=== PATIENT | female | born 1935 | race Caucasian/White ===

== ENCOUNTER 2016-05-17 21:09 | Inpatient (IN) | payer OTHER, BC ==
--- NOTE | 2016-05-17 21:29 | PDOC ---
History of Present Illness - General History Source: Patient Exam Limitations: No Limitations - History of Present Illness Initial Comments: 05/17/16 21:54 Patient is a 80 year old female with significant past medical history of Afib ( on Coumadin) who presents to the ED with SOB. Patient notes that she has had a cough and chills since last Friday and saw her PCP yesterday and was prescribed cough medication with codeine. Patient notes that over the course of today she became more short of breath, worsening over the few hours. Patient reports productive cough and chest congestion. She denies any chest pain. PAST MEDICAL HISTORY: Afib on Coumadin PAST SURGICAL HISTORY: no significant history FAMILY HISTORY: no pertinent history SOCIAL HISTORY: Pt lives with family. MEDICATIONS: reviewed ALLERGIES: As per nursing notes General: +chills. No fevers, no weakness, no weight loss HEENT: No change in vision. No sore throat, No ear pain CardioVascular: No chest pain. Respiratory: +cough, +SOB, +chest heaviness. No wheezing. Gastrointestinal: no nausea, vomiting, diarrhea or constipation, No rectal bleeding Genitourinary: No dysuria, hematuria, or frequency Musculoskeletal: No joint or muscle pain or swelling Neurologic: No headache, vertigo, dizziness or loss of consciousness Psychiatric: nor depression Skin: No rashes or easy bruising Endocrine: no increased thirst or abnormal weight change Allergic: no skin or latex allergy All other systems reviewed and normal General: Well-nourished well-developed individual, no acute distress HEENT: Throat: Normal, tonsils normal, no erythema or exudate Neck: Supple, no meningeal signs, no lymphadenopathy Eyes: Pupils equal reactive and round, extraocular motion intact Chest: Nontender to palpation Cardiac: +Irregularly irregular rate and rhythm, S1-S2 normal, no murmurs rubs or gallops Respiratory: +Breath sounds decreased on the right with few inspiratory and expiratory wheezes and rhonchi. Abdomen: Soft, nondistended, normal bowel sounds, nontender to palpation diffusely Extremities: Warm, dry, no cyanosis, clubbing, or edema Skin: No rashes Neuro: Alert and oriented x3, nonfocal exam, grossly intact, normal gait Psych: Normal mood and affect <Elda Gaspar - Last Filed: 05/17/16 21:54> - General History Source: Patient Exam Limitations: No Limitations - History of Present Illness Initial Comments: 05/17/16 22:34 A portion of this note was documented by scribe services under my direction. I have reviewed the details of the note, within reason, and agree with the documentation. The case summary and management plan written by me. EKG normal atrial fibrillation at a rate is [address] depressions laterally questionable ischemia otherwise no acute ST-T wave changes Chest x-ray no acute disease Assessment and plan: This is an 80-year-old female who comes in complaining of cough congestion fevers chills progressive times approximately one week. On arrival in the emergency room patient's O2 sat was 96% and she was to. Patient also noted to have a productive cough. Patient also complained of some chest tightness in her cardiogram shows some possible lateral ischemia Patient's initial she will set of cardiac enzymes is normal Patient given Rocephin 4 presumptive pneumonia as her clinical exam was consistent with pneumonia with rhonchi at the right base. Patient will be admitted to an inpatient telemetry bed for presumptive pneumonia and chest pain. Discussed admission with Dr. Rueda. <Alexis Min I - Last Filed: 05/17/16 23:09> - General Chief Complaint: Shortness of Breath Stated Complaint: SHORT OF BREATH Time Seen by Provider: 05/17/16 21:14 Past History <Elda Gaspar - Last Filed: 05/17/16 21:54> - Past Medical History Anemia: No Asthma: No Cancer: Yes (Bladder, CERVIX) Cardiac Disorders: Yes (HX OF ATRIAL FIBRILLATION) CVA: No COPD: No CHF: No Dementia: No Diabetes: No GI Disorders: Yes (COLON ADENOMA, DIVERTICULOSIS, HEMORRHOIDS) Disorders: Yes (BLADDER CA) HTN: Yes Hypercholesterolemia: Yes Liver Disease: No Seizures: No Thyroid Disease: No - Surgical History Abdominal Surgery: No Appendectomy: No Cardiac Surgery: Yes (CARDIOVERTED PAROXYSMAL ATRIAL FIBRILLATION) Cholecystectomy: No Lung Surgery: No Neurologic Surgery: No Orthopedic Surgery: Yes (SUSI. HIP REPLACEMENTS) - Psycho/Social/Smoking Cessation Hx Smoking History: Former smoker Have you smoked in the past 12 months: No If you are a former smoker, when did you quit?: 25 YRS AGO Hx Alcohol Use: Yes (SOCIAL) Drug/Substance Use Hx: No Substance Use Type: None Hx Substance Use Treatment: No <Alexis Min I - Last Filed: 05/17/16 23:09> - Past Medical History Allergies/Adverse Reactions: Allergies Allergy/AdvReac Type Severity Reaction Status Date / Time quinine Allergy Swelling Verified 05/17/16 21:28 apixaban [From Eliquis] AdvReac Bleeding Verified 05/17/16 21:28 dabigatran etexilate mesylate AdvReac Bleeding Verified 05/17/16 21:28 [From Pradaxa] Home Medications: Ambulatory Orders Pyridoxine HCl (B-6) [Vitamin B6 -] 100 mg PO DAILY 06/11/13 Quinapril HCl [Accupril -] 40 mg PO DAILY 06/11/13 Atenolol 50 mg PO DAILY tablet 01/27/15 Cyanocobalamin (Vitamin B-12) [Vitamin B-12] 1,000 mcg PO DAILY tablet Folic Acid 0.4 mg PO DAILY tablet 01/04/16 Guaifenesin AC [Robitussin AC] 10 ml PO Q8H PRN 05/17/16 Warfarin Sodium [Coumadin] 4 mg PO MO 05/17/16 Warfarin Sodium [Coumadin] 6 mg PO SUTUWETHFRSA 05/17/16 *Physical Exam - Vital Signs Last Vital Signs Temp Pulse Resp BP Pulse Ox 98.2 F 100 H 26 H 155/109 92 L 05/17/16 21:10 05/17/16 21:10 05/17/16 21:10 05/17/16 21:10 05/17/16 21:10 <Elda Gaspar - Last Filed: 05/17/16 21:54> ED Treatment Course - LABORATORY CBC & Chemistry Diagram: 05/17/16 21:35 05/17/16 21:35 <Elda Gaspar - Last Filed: 05/17/16 21:54> - LABORATORY CBC & Chemistry Diagram: 05/17/16 21:35 05/17/16 21:35 <Alexis Min I - Last Filed: 05/17/16 23:09> *DC/Admit/Observation/Transfer - Attestations Scribe Attestion: 05/17/16 21:54 Documentation prepared by HAMZAH Deng, acting as medical staff services manager for Alexis iMn MD/DO. <Elda Gaspar - Last Filed: 05/17/16 21:54> - Discharge Dispostion Admit: Yes <Alexis Mni I - Last Filed: 05/17/16 23:09> Diagnosis at time of Disposition: Pneumonia, Chest pain - Discharge Dispostion Condition at time of disposition: Good - Referrals Referrals: Roland Davidson MD [Primary Care Provider] -
[2016-05-17 22:03] LABS: EOSINOPHIL 1.4 % (0-4.5); MCHC 33.6 g/dl (32.0-36.0); MEAN CELL VOLUME 89.1 fl (80-96); MEAN PLT VOLUME 8.5 fl (7.5-11.1); NEUTROPHILS 60.9 % (42.8-82.8); PLATELET COUNT 154 K/MM3 (134-434); RDW 13.3 % (11.6-15.6)
[2016-05-17 22:11] LABS: ALBUMIN 4.2 g/dl (3.5-5.0); ALK PHOS 81 U/L (32-92); ANION GAP 9 (8-16); BILIRUBIN,TOTAL 1.1 mg/dl (0.2-1.0); CALCIUM 9.4 mg/dl (8.4-10.2); CO2 24 mmol/L (22-28); CPK(DFH) 112 IU/L (26-140); CREATININE 0.8 mg/dl (0.6-1.3); GLUCOSE,RANDOM 124 mg/dl (74-106); SGOT/AST 36 U/L (10-42); SGPT/ALT 33 U/L (10-40); TOT PROT 7.3 g/dl (6.4-8.3)
[2016-05-17 22:20] LABS: PH,URINE 5.5 (4.5-8); URINE APPEARANCE Clear; URINE BILIRUBIN Negative (NEGATIVE); URINE GLUCOSE (UA) Negative (NEGATIVE); URINE KETONE Negative (NEGATIVE); URINE NITRITE Negative (NEGATIVE); URINE UROBILINOGEN 0.2 E.U/dl (0.2-1.0)
[2016-05-17 22:21] LABS: TROPONIN I (DFP) < 0.03 ng/ml (0.03-0.50)
[2016-05-17 22:25] LABS: URINE BLOOD 2+ (NEGATIVE); URINE COLOR YELLOW; URINE LEUK ESTERASE 1+ (NEGATIVE); URINE PROTEIN 2+ (NEGATIVE)
[2016-05-17] MEDS ORDERED: CEFTRIAXONE 1 GM in DEXTROSE 5%-WATER - 50 ML IVPB ONE (22:32)
[2016-05-17] MEDS ORDERED: cefTRIAXone SODIUM 1 GM VIAL ONE (22:35)
[2016-05-17 22:36] LABS: URINE BACTERIA FEW /hpf (NEGATIVE); URINE RBC 0-2 /hpf (0-3)
[2016-05-18] MEDS ORDERED: AZITHROMYCIN IVPB 500 MG in DEXTROSE 5%-WATER - 250 ML IVPB ONE (00:41)
[2016-05-18] MEDS ORDERED: guaiFENesin/CODEINE 5 ML UNIT-DOSE CUPS PO PRN (00:52)
[2016-05-18] MEDS: ALBUTEROL SO4 2.5/IPRATROPIUM 0.5 INH SOL 3 ML VIAL.NEB. NEB SCH ×4 (01:15→18:31)
--- NOTE | 2016-05-18 01:16 | HP ---
CHIEF COMPLAINT: cough, SOB PCP: Lety HISTORY OF PRESENT ILLNESS: This is an 80 year old female with a past medical history of atrial fibrillation on coumadin, HTN, HLD, diverticulosis, colon polyps, bladder CA, cervical CA who presented to the ED with productive cough and SOB for about 1 week. She saw her PCP yesterday for which he prescribed robitussin AC. A flu swab was also done which was negative for influenza A&B. She came to the ED because the SOB was becoming more severe and was having difficulty walking more from room to room in her home. She denies chest pain but does report a heaviness in her breathing. Denies fever, chills, abdominal pain, nausea, vomiting, diarrhea. Recent Travel: pt denies PAST MEDICAL HISTORY: atrial fibrillation on coumadin HTN HLD diverticulosis colon polyps bladder CA age 70 cervical CA age 29, s/p VALERIANO PAST SURGICAL HISTORY: B/L hip replacement secondary to OA VALERIANO B/L cataract removal Social History: Smoking: quit age 45, smoked 40 years, 1ppd. Alcohol: daily glass of wine Drugs: pt denies Family History: mother age 57, [place], HTN, CVA father age 74, [place] brother late 70s, [place], CVA, HTN, cancer (unknown type) Allergies quinine Allergy (Verified 05/17/16 21:28) Swelling apixaban [From Eliquis] Adverse Reaction (Verified 05/17/16 21:28) Bleeding dabigatran etexilate mesylate [From Pradaxa] Adverse Reaction (Verified 21:28) Bleeding HOME MEDICATIONS: 3 Medication Instructions Recorded Pyridoxine HCl (B-6) [Vitamin B6 -] 100 mg PO DAILY 06/11/13 Quinapril HCl [Accupril -] 40 mg PO DAILY 06/11/13 Atenolol 50 mg PO DAILY tablet 01/27/15 Cyanocobalamin (Vitamin B-12) 1,000 mcg PO DAILY tablet 09/07/15 [Vitamin B-12] Folic Acid 0.4 mg PO DAILY tablet 01/04/16 Guaifenesin AC [Robitussin AC] 10 ml PO Q8H PRN 05/17/16 Warfarin Sodium [Coumadin] 4 mg PO MO 05/17/16 Warfarin Sodium [Coumadin] 6 mg PO SUTUWETHFRSA 05/17/16 REVIEW OF SYSTEMS CONSTITUTIONAL: Present: malaise Absent: fever, chills, diaphoresis, generalized weakness, loss of appetite, weight change HEENT: Absent: rhinorrhea, nasal congestion, throat pain, throat swelling, difficulty swallowing, mouth swelling, ear pain, eye pain, visual changes CARDIOVASCULAR: Absent: chest pain, syncope, palpitations, irregular heart rate, lightheadedness , peripheral edema RESPIRATORY: Present: cough, shortness of breath, dyspnea with exertion Absent: orthopnea, wheezing, stridor, hemoptysis GASTROINTESTINAL: Absent: abdominal pain, abdominal distension, nausea, vomiting, diarrhea, constipation, melena, hematochezia GENITOURINARY: Absent: dysuria, frequency, urgency, hesitancy, hematuria, flank pain, genital pain MUSCULOSKELETAL: Absent: myalgia, arthralgia, joint swelling, back pain, neck pain SKIN: Absent: rash, itching, pallor HEMATOLOGIC/IMMUNOLOGIC: Absent: easy bleeding, easy bruising, lymphadenopathy, frequent infections ENDOCRINE: Absent: unexplained weight gain, unexplained weight loss, heat intolerance, cold intolerance NEUROLOGIC: Absent: headache, focal weakness or paresthesias, dizziness, unsteady gait, seizure, mental status changes, bladder or bowel incontinence PSYCHIATRIC: Absent: anxiety, depression, suicidal or homicidal ideation, hallucinations. PHYSICAL EXAMINATION Vital Signs - 24 hr 3 05/17/16 05/17/16 05/18/16 21:10 23:04 00:26 Temperature 98.2 F 97.4 F L Pulse Rate 88 104 H Pulse Rate [ 102 H Apical] Respiratory 26 H 24 19 Rate Blood Pressure 155/109 121/85 Blood Pressure 109/84 [Arm] O2 Sat by Pulse 98 95 Oximetry (%) GENERAL: Awake, alert, and fully oriented, in no acute distress. HEAD: Normal with no signs of trauma. EYES: Pupils equal, round and reactive to light, extraocular movements intact, sclera anicteric, conjunctiva clear. No lid lag. EARS, NOSE, THROAT: Ears normal, nares patent, oropharynx clear without exudates. Moist mucous membranes. NECK: Normal range of motion, supple without lymphadenopathy, JVD, or masses. LUNGS: No accessory muscle use. Right lung base with rhonchi and wheezing. Exp wheezing entire right lung field. HEART: Irregular rate and rhythm, normal S1 and S2 without murmur, rub or gallop. ABDOMEN: Soft, nontender, not distended, normoactive bowel sounds, no guarding, no rebound, no masses. No hepatomegaly or splenomegaly. MUSCULOSKELETAL: Normal range of motion at all joints. No bony deformities or tenderness. No CVA tenderness. UPPER EXTREMITIES: 2+ pulses, warm, well-perfused. No cyanosis. No clubbing. Cap refill <2 seconds. No peripheral edema. LOWER EXTREMITIES: 2+ pulses, warm, well-perfused. No calf tenderness. No peripheral edema. NEUROLOGICAL: Cranial nerves II-XII intact. Normal speech. Normal gait. PSYCHIATRIC: Cooperative. Good eye contact. Appropriate mood and affect. SKIN: Warm, dry, normal turgor, no rashes or lesions noted. Laboratory Results - last 24 hr 3 05/17/16 05/17/16 05/17/16 21:35 21:35 21:35 WBC 4.0 RBC 4.71 Hgb 14.1 Hct 42.0 MCV 89.1 MCHC 33.6 RDW 13.3 Plt Count 154 MPV 8.5 Neutrophils % 60.9 Lymphocytes % 23.1 Monocytes % 13.6 H Eosinophils % 1.4 Basophils % 1.0 Sodium 133 L Potassium 4.1 Chloride 100 Carbon Dioxide 24 Anion Gap 9 BUN 14 D Creatinine 0.8 Creat Clearance w eGFR > 60 Random Glucose 124 H D Calcium 9.4 Total Bilirubin 1.1 H D AST 36 D ALT 33 D Alkaline Phosphatase 81 Creatine Kinase 112 Troponin I < 0.03 L Total Protein 7.3 Albumin 4.2 Urine Color Urine Appearance Urine pH Ur Specific [place] Urine Protein Urine Glucose (UA) Urine Ketones Urine Blood Urine Nitrite Urine Bilirubin Urine Urobilinogen Ur Leukocyte Esterase Urine RBC Urine WBC Ur Epithelial Cells Urine Bacteria 3 Urine Color Yellow 05/17/16 22:15 Urine Appearance Clear 05/17/16 22:15 Urine pH 5.5 (4.5-8) 05/17/16 22:15 Ur Specific [place] 1.020 (1.005-1.025) 05/17/16 22:15 Urine Protein 2+ (NEGATIVE) H 05/17/16 22:15 Urine Glucose (UA) Negative (NEGATIVE) 05/17/16 22:15 Urine Ketones Negative (NEGATIVE) 05/17/16 22:15 Urine Blood 2+ (NEGATIVE) H 05/17/16 22:15 Urine Nitrite Negative (NEGATIVE) 05/17/16 22:15 Urine Bilirubin Negative (NEGATIVE) 05/17/16 22:15 Ur Leukocyte Esterase 1+ (NEGATIVE) H 05/17/16 22:15 Urine RBC 0-2 /hpf (0-3) 05/17/16 22:15 Urine WBC 10-20 (3-5) 05/17/16 22:15 Ur Epithelial Cells Few /HPF 05/17/16 22:15 Urine Bacteria Few /hpf (NEGATIVE) 05/17/16 22:15 ECG: Atrial fibrillation with RVR, rate 103, QTC 434, T wave flattened/inverted 2, 3, aVF; poor baseline CXR: Impression: No significant interval change or acute lung disease is present. ASSESSMENT/PLAN: 80yF with PMH atrial fibrillation on coumadin, HTN, HLD, diverticulosis, colon polyps, bladder CA, cervical CA presented to the ED with productive cough x 1 week with worsening SOB. She is being admitted for further management of her acute condition. community acquired pneumonia - treating for pneumonia despite xray given clinical picture - ceftriaxone 1g and azithromycin 500mg daily. - duoneb q6h for wheezing Chest pain r/o ACS - given extensive family history of CAD will monitor on tele and trend troponin, 1st negative Atrial fibrillation, chronic - cont atenolol for rate control, consider increased dose if VR persistently above 100. - INR with next lab draw. If 2-3, cont current home dose warfarin. HTN - cont home meds. Can decrease quinapril dose if atenolol needs to be increased for rate control and BP low DVT PPX - start heparin SC FEN - tolerating po, defer IVF - BMP in am - Low sodium diet Dispo: Pt currently requires inpatient care. Visit type - Emergency Visit Emergency Visit: Yes ED Registration Date: 05/17/16 Care time: The patient presented to the Emergency Department on the above date and was hospitalized for further evaluation of their emergent condition. - New Patient This patient is new to me today: Yes Date on this admission: 05/18/16 - Critical Care Critical Care patient: No
[2016-05-18 02:01] VITALS: BMI 24.5
[2016-05-18 04:13] LABS: INR 3.14 (0.82-1.09); PROTHROMBIN TIME (PATIENT) 35.3 SEC (9.98-11.88)
[2016-05-18 04:25] LABS: TROPONIN I < 0.02 ng/ml (0.00-0.05)
[2016-05-18] MEDS ORDERED: PATIENT'S OWN MEDICATION (NON-FORMULARY) (Folic Acid [Folic Acid] 0.4 MG) PO SCH (10:00)
[2016-05-18] MEDS: PYRIDOXINE HCL (B-6) 100 MG TABLET PO SCH (10:14)
[2016-05-18] MEDS: QUINAPRIL HCL 40 MG TABLET (FP) PO SCH (10:14)
[2016-05-18] MEDS: CYANOCOBALAMIN 1,000 MCG TABLET (FP) PO SCH (10:28)
[2016-05-18] MEDS: RANITIDINE HCL 150 MG TABLET (FP) PO SCH (10:28)
[2016-05-18] MEDS: ATENOLOL 50 MG TABLET (FP) PO SCH (10:28)
[2016-05-18] MEDS: HEPARIN NA (PORCINE) 5,000 UNITS/ML 1ML VIAL SQ SCH ×2 (10:28→21:53)
[2016-05-18 10:29] LABS: BASOPHIL 1.4 % (0-2.0); EOSINOPHIL 1.8 % (0-4.5); MCH 30.5 pg (25.7-33.7); MCHC 34.3 g/dl (32.0-36.0); MEAN CELL VOLUME 88.9 fl (80-96); MEAN PLT VOLUME 8.2 fl (7.5-11.1); NEUTROPHILS 53.4 % (42.8-82.8); PLATELET COUNT 124 K/MM3 (134-434); RDW 13.4 % (11.6-15.6); WHITE BLOOD COUNT 3.3 K/mm3 (4.0-10.0)
[2016-05-18] MEDS: guaiFENesin 200 MG/10 ML 10 ML UNIT-DOSE CUPS PO PRN ×2 (10:29→21:54)
[2016-05-18 10:53] LABS: CALCIUM 9.2 mg/dl (8.4-10.2); CREATININE 0.8 mg/dl (0.6-1.3); MAGNESIUM 1.8 mg/dL (1.8-2.4); PHOSPHOROUS 2.6 mg/dl (2.5-4.6)
--- NOTE | 2016-05-18 13:44 | PN ---
Physical Exam: SUBJECTIVE: Patient seen and examined, denies CP/SOB, denies fever or chills. OBJECTIVE:80 year old female with multiple medical history including: atrial fibrillation on coumadin, HTN, HLD, diverticulosis, colon polyps, bladder CA, cervical CA presented to the ED with productive cough and SOB for about 1 week, CXR was negative for infiltrate for was thus admitted with pneumonia. Last Vital Signs Temp Pulse Resp BP Pulse Ox 99.6 F 86 18 103/67 95 05/18/16 14:28 05/18/16 14:28 05/18/16 14:28 05/18/16 14:28 05/18/16 14:28 GENERAL: The patient is awake, alert, and fully oriented, in no acute distress. HEAD: Normal with no signs of trauma. EYES: PERRL, extraocular movements intact, sclera anicteric, conjunctiva clear. No ptosis. ENT: Ears normal, nares patent, oropharynx clear without exudates, moist mucous membranes. NECK: Trachea midline, full range of motion, supple. LUNGS: Breath sounds with scattered rhonchi, no crackles, no accessory muscle use, (+) moist cough. HEART: Regular rate and rhythm, S1, S2 without murmur, rub or gallop. ABDOMEN: Soft, nontender, nondistended, normoactive bowel sounds, no guarding, no rebound, no hepatosplenomegaly, no masses. EXTREMITIES: 2+ pulses, warm, well-perfused, no edema. NEUROLOGICAL: Cranial nerves II through XII grossly intact. Normal speech, gait not observed. PSYCH: Normal mood, normal affect. SKIN: Warm, dry, normal turgor, no rashes or lesions noted Laboratory Results - last 24 hr 05/18/16 05/18/16 05/18/16 03:00 03:00 03:00 WBC RBC Hgb Hct MCV MCHC RDW Plt Count MPV Neutrophils % Lymphocytes % Monocytes % Eosinophils % Basophils % INR 3.14 H Sodium Potassium Chloride Carbon Dioxide Anion Gap BUN Creatinine Random Glucose Calcium Phosphorus Magnesium Creatine Kinase Cancelled 92 Troponin I Cancelled < 0.02 05/18/16 05/18/16 10:20 10:20 WBC 3.3 L RBC 4.36 Hgb 13.3 Hct 38.8 MCV 88.9 MCHC 34.3 RDW 13.4 Plt Count 124 L MPV 8.2 Neutrophils % 53.4 Lymphocytes % 29.2 D Monocytes % 14.2 H Eosinophils % 1.8 Basophils % 1.4 INR Sodium 136 Potassium 3.8 Chloride 103 Carbon Dioxide 25 Anion Gap 8 BUN 15 Creatinine 0.8 Random Glucose 97 D Calcium 9.2 Phosphorus 2.6 D Magnesium 1.8 Creatine Kinase Troponin I Active Medications Generic Name Dose Route Start Last Admin Trade Name Freq PRN Reason Stop Dose Admin Albuterol/Ipratropium 1 amp 05/18/16 00:45 05/18/16 06:51 Duoneb - NEB 1 amp QIDR [facility] Administration Atenolol 50 mg 05/18/16 10:00 05/18/16 10:28 Tenormin - PO 50 mg DAILY [facility] Administration Ceftriaxone Sodium 1 gm 05/18/16 22:00 Rocephin 1gm Ivpb (Pre-Docked) IVPB [facility] Protocol Cyanocobalamin 1,000 mcg 05/18/16 10:00 05/18/16 10:28 Vitamin B12 - PO 1,000 mcg DAILY [facility] Administration Guaifenesin 10 ml 05/18/16 00:51 05/18/16 10:29 Robitussin - PO 10 ml Q4H PRN Administration COUGH Guaifenesin/Codeine Phosphate 5 ml 05/18/16 00:52 Robitussin Ac - PO HS PRN COUGH Heparin Sodium (Porcine) 5,000 unit 05/18/16 10:00 05/18/16 10:28 Heparin - SQ 5,000 unit BID [facility] Administration Azithromycin 500 mg/ Dextrose 250 mls @ 250 mls/hr 05/18/16 22:00 IVPB [facility] Non-Formulary Medication 0.4 mg 05/18/16 10:00 Folic Acid [Folic Acid] PO DAILY [facility] Pyridoxine HCl 100 mg 05/18/16 10:00 Vitamin B6 - PO DAILY [facility] Quinapril HCl 40 mg 05/18/16 10:00 Accupril - PO DAILY [facility] Ranitidine HCl 150 mg 05/18/16 10:00 05/18/16 10:28 Zantac - PO 150 mg DAILY [facility] Administration Warfarin Sodium 6 mg 05/18/16 18:00 Coumadin - PO [id number]@1800 [facility] Warfarin Sodium 4 mg 05/20/16 18:00 Coumadin - PO [id number]@1800 [facility] ASSESSMENT/PLAN: Pneumonia - treating for clinical pneumonia despite negative CXR -IV ceftriaxone and azithromycin daily. - duoneb q6h for wheezing supplemental oxygen monitor sat, monitor temp recent influenza at PCP's office negative Chest pain -r/o ACS currently denies CP - monitor on tele check BNP in AM serials cardiac enzymes negative x2 Atrial fibrillation - rate controlled, cont atenolol -today's INR 3.14 - INR with next lab draw. If 2-3, cont current home dose warfarin. HTN -controlled - cont current home regimen, monitor BP, adjust meds prn - low salt diet ? UTI -UA with (+) leukocyte, on rocephin, urine culture pending. Hyponatremia -resolved 136 from 133 AM labs DVT PPX heparin SC FEN - tolerating po, defer IVF - BMP in am - Low sodium diet Dispo: Pt currently requires inpatient care. Visit type - Emergency Visit Emergency Visit: Yes ED Registration Date: 05/17/16 Care time: The patient presented to the Emergency Department on the above date and was hospitalized for further evaluation of their emergent condition. - New Patient This patient is new to me today: Yes Date on this admission: 05/18/16 - Critical Care Critical Care patient: No - Discharge Referral Referred to [facility] Med [facility].C.: Yes
[2016-05-18 14:47] LABS: CPK(DFH) 90 IU/L (26-140)
[2016-05-18 15:06] LABS: TROPONIN I (DFP) < 0.03 ng/ml (0.03-0.50)
--- NOTE | 2016-05-18 21:04 | EKG ---
Test Reason : Blood Pressure : / mmHG Vent. Rate : 103 BPM Atrial Rate : 094 BPM P-R Int : 000 ms QRS Dur : 088 ms QT Int : 332 ms P-R-T Axes : 000 -17 223 degrees QTc Int : 434 ms ATRIAL FIBRILLATION WITH RAPID VENTRICULAR RESPONSE POSSIBLE ANTEROSEPTAL INFARCT (CITED ON OR BEFORE 11-JUN-2013) ABNORMAL ECG WHEN COMPARED WITH ECG OF 11-JUN-2013 09:26, SIGNIFICANT CHANGES HAVE OCCURRED Confirmed by IWONA FREEMAN MD ([id number]) on 05/18/2016 9:04:00 PM Referred By: MD KELLEY Confirmed By:IWONA FREEMAN MD
[2016-05-18] MEDS: cefTRIAXone 1 GM/50 ML BAG (PRE-DOCKED) IVPB SCH (21:54)
[2016-05-18] MEDS: AZITHROMYCIN IVPB 500 MG in DEXTROSE 5%-WATER - 250 ML IVPB SCH (22:29)
[2016-05-19] MEDS: ALBUTEROL SO4 2.5/IPRATROPIUM 0.5 INH SOL 3 ML VIAL.NEB. NEB SCH ×4 (05:47→18:04)
[2016-05-19] MEDS: guaiFENesin 200 MG/10 ML 10 ML UNIT-DOSE CUPS PO PRN (05:48)
[2016-05-19 07:50] LABS: CALCIUM 9.1 mg/dl (8.4-10.2); CREATININE 0.8 mg/dl (0.6-1.3)
[2016-05-19 08:05] LABS: BASOPHIL 0.7 % (0-2.0); EOSINOPHIL 5.4 % (0-4.5); MCH 29.7 pg (25.7-33.7); MCHC 32.7 g/dl (32.0-36.0); MEAN CELL VOLUME 91.1 fl (80-96); MEAN PLT VOLUME 8.9 fl (7.5-11.1); NEUTROPHILS 39.2 % (42.8-82.8); PLATELET COUNT 105 K/MM3 (134-434); RDW 13.4 % (11.6-15.6); WHITE BLOOD COUNT 3.5 K/mm3 (4.0-10.0)
[2016-05-19] MEDS ORDERED: PT OWN MED DRAWER 7, Y5N ONE ×2 (09:33→21:12)
--- NOTE | 2016-05-19 09:37 | PN ---
Physical Exam: SUBJECTIVE: Patient seen and examined. Has slight yellow discharge from nose, loose cough, and feels SOB. OBJECTIVE: Vital Signs Period Temp Pulse Resp BP Sys/Zelaya Pulse Ox Last 24 Hr 98.7 F-99.6 F 69-86 18-18 103-107/67-70 95-97 GENERAL: The patient is awake, alert, and fully oriented, in no acute distress. HEAD: Normal with no signs of trauma. EYES: PERRL, extraocular movements intact, sclera anicteric, conjunctiva clear. No ptosis. LUNGS: Breath sounds equal, clear to auscultation bilaterally, no wheezes, no crackles, no accessory muscle use. HEART: Irregular; S1, S2 without murmur, rub or gallop. ABDOMEN: Soft, nontender, nondistended, normoactive bowel sounds, no guarding, no rebound, no hepatosplenomegaly, no masses. EXTREMITIES: 2+ pulses, warm, well-perfused, no edema. NEUROLOGICAL: Cranial nerves II through XII grossly intact. Normal speech, steady gait. PSYCH: Normal mood, normal affect. SKIN: Warm, dry, normal turgor, no rashes or lesions noted Laboratory Results - last 24 hr 05/18/16 05/18/16 05/18/16 10:20 10:20 10:20 WBC 3.3 L RBC 4.36 Hgb 13.3 Hct 38.8 MCV 88.9 MCHC 34.3 RDW 13.4 Plt Count 124 L MPV 8.2 Neutrophils % 53.4 Lymphocytes % 29.2 D Monocytes % 14.2 H Eosinophils % 1.8 Basophils % 1.4 Sodium 136 Potassium 3.8 Chloride 103 Carbon Dioxide 25 Anion Gap 8 BUN 15 Creatinine 0.8 Random Glucose 97 D Calcium 9.2 Phosphorus 2.6 D Magnesium 1.8 Creatine Kinase 90 Troponin I < 0.03 L 05/19/16 05/19/16 06:30 06:30 WBC 3.5 L RBC 4.35 Hgb 12.9 Hct 39.6 MCV 91.1 MCHC 32.7 RDW 13.4 Plt Count 105 L MPV 8.9 Neutrophils % 39.2 L D Lymphocytes % 43.1 H D Monocytes % 11.6 H Eosinophils % 5.4 H D Basophils % 0.7 Sodium 139 Potassium 4.0 Chloride 107 Carbon Dioxide 25 Anion Gap 7 L BUN 13 Creatinine 0.8 Random Glucose 91 Calcium 9.1 Phosphorus Magnesium Creatine Kinase Troponin I Active Medications Generic Name Dose Route Start Last Admin Trade Name Freq PRN Reason Stop Dose Admin Albuterol/Ipratropium 1 amp 05/18/16 00:45 05/19/16 05:47 Duoneb - NEB 1 amp QIDR [facility]INO Administration Atenolol 50 mg 05/18/16 10:00 05/18/16 10:28 Tenormin - PO 50 mg DAILY [facility] Administration Ceftriaxone Sodium 1 gm 05/18/16 22:00 05/18/16 21:54 Rocephin 1gm Ivpb (Pre-Docked) IVPB 1 gm HS [facility]INO Administration Protocol Cyanocobalamin 1,000 mcg 05/18/16 10:00 05/18/16 10:28 Vitamin B12 - PO 1,000 mcg DAILY [facility] Administration Guaifenesin 10 ml 05/18/16 00:51 05/19/16 05:48 Robitussin - PO 10 ml Q4H PRN Administration COUGH Guaifenesin/Codeine Phosphate 5 ml 05/18/16 00:52 Robitussin Ac - PO HS PRN COUGH Heparin Sodium (Porcine) 5,000 unit 05/18/16 10:00 05/18/16 21:53 Heparin - SQ 5,000 unit BID [facility] Administration Azithromycin 500 mg/ Dextrose 250 mls @ 250 mls/hr 05/18/16 22:00 05/18/16 22: 29 IVPB 250 mls/hr HS [facility]INO Administration Non-Formulary Medication 0.4 mg 05/18/16 10:00 Folic Acid [Folic Acid] PO DAILY [facility] Pyridoxine HCl 100 mg 05/18/16 10:00 05/18/16 10:14 Vitamin B6 - PO 100 mg DAILY [facility] Administration Quinapril HCl 40 mg 05/18/16 10:00 05/18/16 10:14 Accupril - PO 40 mg DAILY [facility] Administration Ranitidine HCl 150 mg 05/18/16 10:00 05/18/16 10:28 Zantac - PO 150 mg DAILY [facility] Administration Warfarin Sodium 6 mg 05/18/16 18:00 Coumadin - PO [id number]@1800 [facility] Warfarin Sodium 4 mg 05/20/16 18:00 Coumadin - PO Mo@1800 [facility] ASSESSMENT/PLAN 80 year-old female with a PMH of HTN, HLD, afib on coumadin, bladder cancer and cervical cancer, admitted for SOB and cough. Admitted for pneumonia, afib with RVR. Afib with RVR --observed trial of walking today, HR to 130's on telemetry, desatted to 86% , and became symptomatically SOB --cardiology consult requested, Dr. Linn is personal night clerk auditor --continue atenolol --INR 2.36, dose coumadin tonight Sinusitis Cough --afebrile, no leukocytosis, CXR clear, exam unremarkable --slight yellow nasal discharge, +loose cough likely post-nasal drip --cultures pending; flu swab negative --start claritin, fluticasone nasal spray --continue empiric azithro and ceftriaxone --continue duonebs Pyuria --continue ceftriaxone pending urine culture Hypertension --BP well-controlled --continue quinapril, atenolol Hyperlipidemia --not on home meds Bladder cancer Cervical cancer --no acute issues F/E/N Fluids: PO intake adequate Electrolytes: replete as indicated Nutrition: low sodium diet DVT prophylaxis: subq heparin Dispo: continues to require inpatient care. Full Code. Visit type - Emergency Visit Emergency Visit: Yes ED Registration Date: 05/17/16 Care time: The patient presented to the Emergency Department on the above date and was hospitalized for further evaluation of their emergent condition. - New Patient This patient is new to me today: Yes Date on this admission: 05/19/16 - Critical Care Critical Care patient: No
[2016-05-19] MEDS: RANITIDINE HCL 150 MG TABLET (FP) PO SCH (09:42)
[2016-05-19] MEDS: HEPARIN NA (PORCINE) 5,000 UNITS/ML 1ML VIAL SQ SCH (09:42)
[2016-05-19] MEDS: CYANOCOBALAMIN 1,000 MCG TABLET (FP) PO SCH (09:42)
[2016-05-19] MEDS: ATENOLOL 50 MG TABLET (FP) PO SCH (09:42)
[2016-05-19 10:55] LABS: INR 2.36 (0.82-1.09)
[2016-05-19] MEDS ORDERED: ATENOLOL 25 MG TABLET (FP) PO ONE (11:11)
[2016-05-19] MEDS: PYRIDOXINE HCL (B-6) 100 MG TABLET PO SCH (11:13)
[2016-05-19] MEDS: QUINAPRIL HCL 40 MG TABLET (FP) PO SCH (11:13)
[2016-05-19] MEDS: FLUTICASONE PROP 0.05% 16 GM NASAL SPRAY NS SCH ×2 (11:20→21:19)
[2016-05-19] MEDS: LORATADINE 10 MG TABLET PO SCH (11:21)
--- NOTE | 2016-05-19 11:56 | CONSULT ---
Consult Consult Specialty:: Cardiology (Dr. Linn) Referred by:: Dr. [place] Reason for Consultation:: Afib with dyspnea - History of Present Illness Chief Complaint: Cough and dyspnea History of Present Illness: Patient seen and examined (Dr. Salcedo covering Dr. Linn) 80 yo female Known to Dr. Linn last seen 2 weeks ago History of Afib with rate control and anticoagulation on Warfarin (allergies to DOACs in the past) Hypertension and dyslipidemia Bladder and cervical cancer Now presents to ED after 1 week of worsening cough and dyspnea Had recently been seen by Dr. Davidson (PMD) jesus alberto. Influenza swab negative. Sates she had (+) sick contacts at [facility] office. No fevers at home but noted yellow productive cough and coryza. - History Source History Provided By: Patient, Medical Record Limitations to Obtaining History: No Limitations - Past Medical History Cardio/Vascular: Yes: AFIB, HTN, Hyperlipdemia Renal/: Yes: Cancer - Alcohol/Substance Use Hx Alcohol Use: Yes (SOCIAL) - Smoking History Smoking history: Former smoker Have you smoked in the past 12 months: No If you are a former smoker, when did you quit?: 25 YRS AGO Home Medications - Allergies Allergies/Adverse Reactions: Allergies Allergy/AdvReac Type Severity Reaction Status Date / Time quinine Allergy Swelling Verified 05/17/16 21:28 apixaban [From Eliquis] AdvReac Bleeding Verified 05/17/16 21:28 dabigatran etexilate mesylate AdvReac Bleeding Verified 05/17/16 21:28 [From Pradaxa] - Home Medications Home Medications: Ambulatory Orders Pyridoxine HCl (B-6) [Vitamin B6 -] 100 mg PO DAILY 06/11/13 Quinapril HCl [Accupril -] 40 mg PO DAILY 06/11/13 Atenolol 50 mg PO DAILY tablet 01/27/15 Cyanocobalamin (Vitamin B-12) [Vitamin B-12] 1,000 mcg PO DAILY tablet Folic Acid 0.4 mg PO DAILY tablet 01/04/16 Guaifenesin AC [Robitussin AC] 10 ml PO Q8H PRN 05/17/16 Warfarin Sodium [Coumadin] 4 mg PO MO 05/17/16 Warfarin Sodium [Coumadin] 6 mg PO [id number] 05/17/16 Family Disease History - Family Disease History Family Disease History: Heart Disease: Father, Mother, Brother Review of Systems - Review of Systems Constitutional: reports: Loss of Appetite Eyes: reports: No Symptoms HENT: reports: No Symptoms Neck: reports: No Symptoms Cardiovascular: reports: Shortness of Breath Respiratory: reports: Cough, SOB, SOB on Exertion Gastrointestinal: reports: No Symptoms Genitourinary: reports: No Symptoms Breasts: reports: No Symptoms Reported Musculoskeletal: reports: No Symptoms Integumentary: reports: No Symptoms, Incision Psychiatric: reports: No Symptoms Physical Exam Vital Signs: Vital Signs Temperature 98.7 F 05/19/16 05:48 Pulse Rate 69 05/19/16 05:48 Respiratory Rate 18 05/19/16 05:48 Blood Pressure 104/70 05/19/16 05:48 O2 Sat by Pulse Oximetry (%) 97 05/19/16 09:04 Constitutional: Yes: Well Nourished, No Distress, Calm Eyes: Yes: WNL, Conjunctiva Clear HENT: Yes: WNL, Normocephalic Neck: Yes: WNL, Trachea Midline Cardiovascular: Yes: Pulse Irregular Respiratory: Yes: Regular, CTA Bilaterally Gastrointestinal: Yes: WNL, Normal Bowel Sounds, Soft Musculoskeletal: Yes: WNL Extremities: Yes: WNL Edema: No Labs: CBC, BMP 05/19/16 06:30 05/19/16 06:30 Imaging - Results X-ray: Report Reviewed (No active disease) EKG: Image Reviewed (05/17/2016 at 22:01 Afib at 103/min with inferior Qs and T- wave inversions in leads V4-V6.) Other: Other (Echo () Normal bivenstricular size and function with moderately dilated LA and RA. Mild MR and TR.) Problem List - Problems (1) Dyspnea Code(s): R06.00 - DYSPNEA, UNSPECIFIED Qualifiers: Dyspnea type: dyspnea on exertion Qualified Code(s): R06.09 - Other forms of dyspnea (2) Afib Code(s): I48.91 - UNSPECIFIED ATRIAL FIBRILLATION Qualifiers: Atrial fibrillation type: persistent Qualified Code(s): I48.1 - Persistent atrial fibrillation (3) HTN (hypertension) Code(s): I10 - ESSENTIAL (PRIMARY) HYPERTENSION Qualifiers: Hypertension type: essential hypertension Qualified Code(s): I10 - Essential (primary) hypertension Assessment/Plan 1) Cough -Consistent with likely URI (recent sick contacts) -Supportive treatment as per primary team -Check BNP level, if elevated OK to given low dose (lasix 20mg IV) x 1) 2) AFib -Stable and rate controlled at present on Tenormin -Contiue outpatient warfarin dosing (INR 2.36 today) and Tenormin 3) HTN -BP controlled -Contiue outpatient antihypertensive regimen
[2016-05-19] MEDS ORDERED: FUROSEMIDE 40 MG/4 ML INJECTABLE VIAL IVPUSH ONE (15:04)
[2016-05-19] MEDS: WARFARIN NA 3 MG TABLET PO SCH (18:05)
[2016-05-19] MEDS: AZITHROMYCIN IVPB 500 MG in DEXTROSE 5%-WATER - 250 ML IVPB SCH (21:19)
[2016-05-19] MEDS: cefTRIAXone 1 GM/50 ML BAG (PRE-DOCKED) IVPB SCH (22:53)
[2016-05-20] MEDS: ALBUTEROL SO4 2.5/IPRATROPIUM 0.5 INH SOL 3 ML VIAL.NEB. NEB SCH ×4 (01:00→18:15)
[2016-05-20 08:09] LABS: BASOPHIL 1.7 % (0-2.0); EOSINOPHIL 1.8 % (0-4.5); MCH 30.3 pg (25.7-33.7); MCHC 33.9 g/dl (32.0-36.0); MEAN CELL VOLUME 89.5 fl (80-96); MEAN PLT VOLUME 8.7 fl (7.5-11.1); NEUTROPHILS 63.3 % (42.8-82.8); PLATELET COUNT 147 K/MM3 (134-434); WHITE BLOOD COUNT 5.3 K/mm3 (4.0-10.0)
[2016-05-20 08:35] LABS: ALBUMIN 3.7 g/dl (3.5-5.0); ALK PHOS 71 U/L (32-92); ANION GAP 7 (8-16); BILIRUBIN,TOTAL 0.8 mg/dl (0.2-1.0); CALCIUM 9.5 mg/dl (8.4-10.2); CO2 29 mmol/L (22-28); CREATININE 0.9 mg/dl (0.6-1.3); GLUCOSE,RANDOM 105 mg/dl (74-106); MAGNESIUM 1.9 mg/dL (1.8-2.4); PHOSPHOROUS 2.8 mg/dl (2.5-4.6); SGOT/AST 23 U/L (10-42); SGPT/ALT 27 U/L (10-40); TOT PROT 6.5 g/dl (6.4-8.3)
[2016-05-20] MEDS ORDERED: PT OWN MED DRAWER 7, Y5N ONE ×3 (09:24→21:37)
[2016-05-20] MEDS: RANITIDINE HCL 150 MG TABLET (FP) PO SCH (09:34)
[2016-05-20] MEDS: LORATADINE 10 MG TABLET PO SCH (09:34)
[2016-05-20] MEDS: CYANOCOBALAMIN 1,000 MCG TABLET (FP) PO SCH (09:34)
[2016-05-20] MEDS: ATENOLOL 50 MG TABLET (FP) PO SCH (09:36)
[2016-05-20] MEDS: PYRIDOXINE HCL (B-6) 50 MG TABLET (FP) PO SCH (09:37)
[2016-05-20] MEDS: FLUTICASONE PROP 0.05% 16 GM NASAL SPRAY NS SCH ×2 (09:37→21:39)
[2016-05-20] MEDS ORDERED: QUINAPRIL HCL 20 MG TABLET (FP) PO SCH (10:00)
--- NOTE | 2016-05-20 10:05 | PN ---
[id number] of breath. OBJECTIVE:80 year-old female with a PMH of HTN, HLD, afib on coumadin, bladder cancer and cervical cancer. She was admitted from the emergency department for pneumonia, afib with RVR. Vital Signs Period Temp Pulse Resp BP Sys/Zelaya Pulse Ox Last 24 Hr 98.0 F-98.7 F 86-105 18-20 95-106/57-66 97-99 GENERAL: The patient is awake, alert, and fully oriented, in no acute distress. HEAD: Normal with no signs of trauma. EYES: PERRL, extraocular movements intact, sclera anicteric, conjunctiva clear. No ptosis. ENT: Ears normal, nares patent, oropharynx clear without exudates, moist mucous membranes. NECK: Trachea midline, full range of motion, supple. LUNGS: Breath sounds equal, clear to auscultation bilaterally to apexes, crackles noted to bases, no wheezes, no accessory muscle use. moist cough noted HEART: Regular rate and rhythm, S1, S2 without murmur, rub or gallop. ABDOMEN: Soft, nontender, nondistended, normoactive bowel sounds, no guarding, no rebound, no hepatosplenomegaly, no masses. EXTREMITIES: 2+ pulses, warm, well-perfused, no edema. NEUROLOGICAL: Cranial nerves II through XII grossly intact. Normal speech, gait not observed. PSYCH: Normal mood, normal affect. SKIN: Warm, dry, normal turgor, no rashes or lesions noted Laboratory Results - last 24 hr 05/19/16 05/19/16 05/20/16 06:30 06:30 07:54 WBC 5.3 D RBC 4.49 Hgb 13.6 Hct 40.2 MCV 89.5 MCHC 33.9 RDW 13.0 Plt Count 147 D MPV 8.7 Neutrophils % 63.3 D Lymphocytes % 22.5 D Monocytes % 10.7 H Eosinophils % 1.8 Basophils % 1.7 INR 2.36 H Sodium Potassium Chloride Carbon Dioxide Anion Gap BUN Creatinine Creat Clearance w eGFR Random Glucose Calcium Phosphorus Magnesium Total Bilirubin AST ALT Alkaline Phosphatase B-Natriuretic Peptide 1433.56 H Total Protein Albumin 05/20/16 07:54 WBC RBC Hgb Hct MCV MCHC RDW Plt Count MPV Neutrophils % Lymphocytes % Monocytes % Eosinophils % Basophils % INR Sodium 138 Potassium 3.7 Chloride 102 Carbon Dioxide 29 H Anion Gap 7 L BUN 16 D Creatinine 0.9 Creat Clearance w eGFR > 60 Random Glucose 105 Calcium 9.5 Phosphorus 2.8 Magnesium 1.9 Total Bilirubin 0.8 D AST 23 D ALT 27 Alkaline Phosphatase 71 B-Natriuretic Peptide Total Protein 6.5 Albumin 3.7 Active Medications Generic Name Dose Route Start Last Admin Trade Name Freq PRN Reason Stop Dose Admin Albuterol/Ipratropium 1 amp 05/18/16 00:45 05/20/16 06:00 Duoneb - NEB 1 amp QIDR [facility]INO Administration Atenolol 50 mg 05/18/16 10:00 05/20/16 09:36 Tenormin - PO 50 mg DAILY [facility] Administration Ceftriaxone Sodium 1 gm 05/18/16 22:00 05/19/16 22:53 Rocephin 1gm Ivpb (Pre-Docked) IVPB 1 gm HS [facility] Administration Protocol Cyanocobalamin 1,000 mcg 05/18/16 10:00 05/20/16 09:34 Vitamin B12 - PO 1,000 mcg DAILY [facility] Administration Fluticasone Propionate 1 spray 05/19/16 11:00 05/20/16 09:37 Flonase - NS 1 inh BID [facility] Administration Guaifenesin 10 ml 05/18/16 00:51 05/19/16 05:48 Robitussin - PO 10 ml Q4H PRN Administration COUGH Azithromycin 500 mg/ Dextrose 250 mls @ 250 mls/hr 05/18/16 22:00 05/19/16 21: 19 IVPB 250 mls/hr HS [facility] Administration Loratadine 10 mg 05/19/16 11:00 05/20/16 09:34 Claritin - PO 10 mg DAILY [facility] Administration Non-Formulary Medication 0.4 mg 05/18/16 10:00 Folic Acid [Folic Acid] PO DAILY [facility] Pyridoxine HCl 100 mg 05/20/16 10:00 05/20/16 09:37 Vitamin B6 - PO 100 mg DAILY [facility] Administration Quinapril HCl 40 mg 05/20/16 10:00 05/20/16 09:34 Accupril - PO 40 mg DAILY [facility] Administration Ranitidine HCl 150 mg 05/18/16 10:00 05/20/16 09:34 Zantac - PO 150 mg DAILY [facility] Administration Warfarin Sodium 6 mg 05/18/16 18:00 05/19/16 18:05 Coumadin - PO 6 mg [id number] [facility] Administration Warfarin Sodium 4 mg 05/20/16 18:00 Coumadin - PO Mo@1800 [facility] Microbiology 05/17/16 21:35 Blood - Peripheral Venous Blood Culture - Preliminary NO GROWTH OBTAINED AFTER 48 HOURS, INCUBATION TO CONTINUE FOR 3 DAYS. 05/17/16 21:40 Blood - Peripheral Venous Blood Culture - Preliminary NO GROWTH OBTAINED AFTER 48 HOURS, INCUBATION TO CONTINUE FOR 3 DAYS. 05/17/16 08:19 Urine - Urine Clean Catch Urine Culture - Final NO GROWTH OBTAINED ASSESSMENT/PLAN: 1) card Afib with RVR - continue to desat to 88% with hr of 120's s and symptomatic after ambulating - ECHO 06/06 reviewed, LV WNL, normal systolic function, normal LA, RV - elevated BNP, lasix 20mg IVP x 1 given yesterday, chest xray repeated no infilitrates no effusions noted, pt appears euvolemic on exam,. pending echo - continue atenolol - continue coumadin 4mg tonight hypertension -continue quinapril, atenolol -cardiology consulted and following 2) pulm - cxr repeated today unchanged from prior, continue empiric and rocephin - continue duonebs F/E/N Fluids: PO intake adequate Electrolytes: replete as indicated Nutrition: low sodium diet DVT prophylaxis: subq heparin Dispo: continues to require inpatient care. Full Code. Visit type - Emergency Visit Emergency Visit: Yes ED Registration Date: 05/17/16 Care time: The patient presented to the Emergency Department on the above date and was hospitalized for further evaluation of their emergent condition. - New Patient This patient is new to me today: Yes Date on this admission: 05/20/16 - Critical Care Critical Care patient: No - Discharge Referral Referred to [facility] Yes Physician Referral: Roland Davidson MD (Int Med)
[2016-05-20 16:23] LABS: INR 2.07 (0.82-1.09); PROTHROMBIN TIME (PATIENT) 22.8 SEC (10.2-13.0)
[2016-05-20] MEDS ORDERED: ACETAMINOPHEN 325 MG TABLET (FP) ONE (17:03)
[2016-05-20] MEDS ORDERED: WARFARIN NA 2 MG TABLET (UD) PO SCH (18:00)
--- NOTE | 2016-05-20 20:07 | PN ---
Progress Note (short form) - Note Progress Note: Chief Complaint: Cough and dyspnea S: sob improving today. cough persists. no cp, palps, dizziness. orthpnea Current Medications Albuterol/Ipratropium (Duoneb -) 1 amp NEB QIDR [facility] Last Admin: 05/20/16 18:15 Dose: 1 amp Atenolol (Tenormin -) 50 mg PO DAILY [facility] Last Admin: 05/20/16 09:36 Dose: 50 mg Ceftriaxone Sodium (Rocephin 1gm Ivpb (Pre-Docked)) 1 gm IVPB [facility] PRN Reason: Protocol Last Admin: 05/19/16 22:53 Dose: 1 gm Cyanocobalamin (Vitamin B12 -) 1,000 mcg PO DAILY [facility] Last Admin: 05/20/16 09:34 Dose: 1,000 mcg Fluticasone Propionate (Flonase -) 1 spray NS BID [facility] Last Admin: 05/20/16 09:37 Dose: 1 inh Guaifenesin (Robitussin -) 10 ml PO Q4H PRN PRN Reason: COUGH Last Admin: 05/19/16 05:48 Dose: 10 ml Azithromycin 500 mg/ Dextrose 250 mls @ 250 mls/hr IVPB [facility] Last Admin: 05/19/16 21:19 Dose: 250 mls/hr Loratadine (Claritin -) 10 mg PO DAILY [facility] Last Admin: 05/20/16 09:34 Dose: 10 mg Non-Formulary Medication (Folic Acid [Folic Acid]) 0.4 mg PO DAILY [facility] Pyridoxine HCl (Vitamin B6 -) 100 mg PO DAILY [facility] Last Admin: 05/20/16 09:37 Dose: 100 mg Quinapril HCl (Accupril -) 40 mg PO DAILY [facility] Last Admin: 05/20/16 09:34 Dose: 40 mg Ranitidine HCl (Zantac -) 150 mg PO DAILY [facility] Last Admin: 05/20/16 09:34 Dose: 150 mg Warfarin Sodium (Coumadin -) 6 mg PO [id number]@1800 [facility] Last Admin: 05/19/16 18:05 Dose: 6 mg Warfarin Sodium (Coumadin -) 4 mg PO Mo@1800 [facility] Last Admin: 05/20/16 18:15 Dose: 4 mg Vital Signs - 24 hr 05/19/16 05/19/16 05/20/16 20:13 22:00 06:00 Temperature 98.7 F 98.6 F Pulse Rate 105 H 99 H Respiratory 20 18 18 Rate Blood Pressure 99/58 95/57 O2 Sat by Pulse 99 97 Oximetry (%) 05/20/16 05/20/16 05/20/16 06:19 08:10 14:47 Temperature 99.6 F Pulse Rate 97 H Respiratory 18 18 Rate Blood Pressure 101/72 O2 Sat by Pulse 99 99 93 L Oximetry (%) Intake & Output 05/18/16 05/19/16 05/20/16 05/21/16 07:59 07:59 07:59 07:59 Intake Total 944 [id number] 6363 Balance 991 852 9480 Weight 161 lb 8 oz Constitutional: Yes: Well Nourished, No Distress, Calm Eyes: Yes: WNL, Conjunctiva Clear HENT: Yes: WNL, Normocephalic Neck: Yes: WNL, Trachea Midline Cardiovascular: Yes: Pulse Irregular Respiratory: Yes: Regular, diffuse wheezes, rhonchi Gastrointestinal: Yes: WNL, Normal Bowel Sounds, Soft Musculoskeletal: Yes: WNL Extremities: Yes: WNL Edema: No Labs: CBC, BMP 05/20/16 07:54 05/20/16 07:54 Laboratory Tests 05/20/16 05/20/16 07:54 15:15 INR 2.07 H Magnesium 1.9 Total Bilirubin 0.8 D AST 23 D ALT 27 Alkaline Phosphatase 71 Imaging - Results X-ray: Report Reviewed (No active disease) EKG: Image Reviewed (05/17/2016 at 22:01 Afib at 103/min with inferior Qs and T- wave inversions in leads V4-V6.) echo here 04/2016: borderline concentriic LVH. nl lv size/fn. Borderline RV dilation, nl fn. mild-mod RA dilation. Mild-mod MAC. 1+ MR, mild-mod tr. Other: Other (Echo (06/11/2013) Normal bivenstricular size and function with moderately dilated LA and RA. Mild MR and TR.) Problem List - Problems (1) Dyspnea Code(s): R06.00 - DYSPNEA, UNSPECIFIED Qualifiers: Dyspnea type: dyspnea on exertion Qualified Code(s): R06.09 - Other forms of dyspnea (2) Afib Code(s): I48.91 - UNSPECIFIED ATRIAL FIBRILLATION Qualifiers: Atrial fibrillation type: persistent Qualified Code(s): I48.1 - Persistent atrial fibrillation (3) HTN (hypertension) Code(s): I10 - ESSENTIAL (PRIMARY) HYPERTENSION Qualifiers: Hypertension type: essential hypertension Qualified Code(s): I10 - Essential (primary) hypertension Assessment/Plan 1) Cough -Consistent with likely URI (recent sick contacts) -Supportive treatment as per primary team. Echo with signs of RV and RA remodeling. -BNP level slightly elevated, given one time dose of IV lasix. - currently without evidence of volume overload. - monitor o2 sat closely 2) AFib -Rate control improving throughout day with managment of pulmonary disease and atenolol -Continue warfarin dosing per INR 3) HTN -BP currently running low, would hold quinapril.
[2016-05-20] MEDS ORDERED: ACETAMINOPHEN 325 MG TABLET (FP) PO PRN (21:29)
[2016-05-20] MEDS: cefTRIAXone 1 GM/50 ML BAG (PRE-DOCKED) IVPB SCH (21:39)
[2016-05-20] MEDS: AZITHROMYCIN IVPB 500 MG in DEXTROSE 5%-WATER - 250 ML IVPB SCH (22:42)
[2016-05-21] MEDS: ALBUTEROL SO4 2.5/IPRATROPIUM 0.5 INH SOL 3 ML VIAL.NEB. NEB SCH ×4 (00:31→17:05)
[2016-05-21 08:05] LABS: MCH 30.6 pg (25.7-33.7); MCHC 34.3 g/dl (32.0-36.0); MEAN CELL VOLUME 89.3 fl (80-96); MEAN PLT VOLUME 8.9 fl (7.5-11.1); PLATELET COUNT 174 K/MM3 (134-434); RDW 13.2 % (11.6-15.6); WHITE BLOOD COUNT 7.7 K/mm3 (4.0-10.0)
[2016-05-21 08:20] LABS: INR 2.2 (0.82-1.09); PROTHROMBIN TIME (PATIENT) 24.3 SEC (10.2-13.0)
[2016-05-21 08:21] LABS: CALCIUM 9.5 mg/dl (8.4-10.2); CREATININE 0.9 mg/dl (0.6-1.3)
[2016-05-21] MEDS ORDERED: PT OWN MED DRAWER 7, Y5N ONE ×3 (09:38→20:29)
[2016-05-21] MEDS: LORATADINE 10 MG TABLET PO SCH (09:41)
[2016-05-21] MEDS: RANITIDINE HCL 150 MG TABLET (FP) PO SCH (09:42)
[2016-05-21] MEDS: CYANOCOBALAMIN 1,000 MCG TABLET (FP) PO SCH (09:42)
[2016-05-21] MEDS: PYRIDOXINE HCL (B-6) 50 MG TABLET (FP) PO SCH (09:42)
[2016-05-21] MEDS: methylPREDNISolone NA SUCC 40 MG/1 ML VIAL IVPB SCH ×2 (09:42→17:05)
[2016-05-21] MEDS: ATENOLOL 50 MG TABLET (FP) PO SCH (09:42)
[2016-05-21] MEDS: FLUTICASONE PROP 0.05% 16 GM NASAL SPRAY NS SCH ×2 (09:43→21:51)
[2016-05-21] MEDS: BUDESONIDE/FORMETEROL FUMARATE 80/4.5 mcg INHALER IH SCH ×2 (09:43→21:57)
--- NOTE | 2016-05-21 10:43 | PN ---
[id number]: patient is a 80 year-old female with a PMH of HTN, HLD, afib on coumadin, bladder cancer and cervical cancer. She was admitted from the emergency department for pneumonia, afib with RVR. Vital Signs Period Temp Pulse Resp BP Sys/Zelaya Pulse Ox Last 24 Hr 98 F-99.9 F 77-97 18-19 100-119/67-88 93-96 GENERAL: The patient is awake, alert, and fully oriented, in no acute distress. HEAD: Normal with no signs of trauma. EYES: PERRL, extraocular movements intact, sclera anicteric, conjunctiva clear. No ptosis. ENT: Ears normal, nares patent, oropharynx clear without exudates, moist mucous membranes. NECK: Trachea midline, full range of motion, supple. LUNGS: Breath sounds equal, clear to auscultation bilaterally to apexes, diminished to bases, no wheezes, no crackles, no accessory muscle use. persistent moist cough noted HEART: Irregular rate and rhythm, S1, S2 without murmur, rub or gallop. ABDOMEN: Soft, nontender, nondistended, normoactive bowel sounds, no guarding, no rebound, no hepatosplenomegaly, no masses. EXTREMITIES: 2+ pulses, warm, well-perfused, no edema. NEUROLOGICAL: Cranial nerves II through XII grossly intact. Normal speech, gait not observed. PSYCH: Normal mood, normal affect. SKIN: Warm, dry, normal turgor, no rashes or lesions noted Laboratory Results - last 24 hr 05/20/16 05/21/16 05/21/16 15:15 07:00 07:00 WBC 7.7 D RBC 4.80 Hgb 14.7 Hct 42.8 MCV 89.3 MCHC 34.3 RDW 13.2 Plt Count 174 MPV 8.9 Neutrophils % Y Lymphocytes % Y INR 2.07 H 2.20 H Sodium Potassium Chloride Carbon Dioxide Anion Gap BUN Creatinine Random Glucose Calcium Magnesium 05/21/16 07:00 WBC RBC Hgb Hct MCV MCHC RDW Plt Count MPV Neutrophils % Lymphocytes % INR Sodium 138 Potassium 3.9 Chloride 102 Carbon Dioxide 27 Anion Gap 9 BUN 16 Creatinine 0.9 Random Glucose 135 H D Calcium 9.5 Magnesium 2.0 Active Medications Generic Name Dose Route Start Last Admin Trade Name Freq PRN Reason Stop Dose Admin Acetaminophen 650 mg 05/20/16 21:29 05/20/16 21:39 Tylenol - PO 650 mg Q6H PRN Administration FEVER OR PAIN Albuterol/Ipratropium 1 amp 05/18/16 00:45 05/21/16 06:47 Duoneb - NEB 1 amp QIDR CHINO Administration Atenolol 50 mg 05/18/16 10:00 05/21/16 09:42 Tenormin - PO 50 mg DAILY CHINO Administration Budesonide/Formoterol Fumarate 2 puff 05/21/16 10:00 05/21/16 09:43 Symbicort 80/4.5mcg - IH 2 puff BID CHINO Administration Ceftriaxone Sodium 1 gm 05/18/16 22:00 05/20/16 21:39 Rocephin 1gm Ivpb (Pre-Docked) IVPB 1 gm HS CHINO Administration Protocol Cyanocobalamin 1,000 mcg 05/18/16 10:00 05/21/16 09:42 Vitamin B12 - PO 1,000 mcg DAILY CHINO Administration Fluticasone Propionate 1 spray 05/19/16 11:00 05/21/16 09:43 Flonase - NS 1 inh BID CHINO Administration Guaifenesin 10 ml 05/18/16 00:51 05/19/16 05:48 Robitussin - PO 10 ml Q4H PRN Administration COUGH Azithromycin 500 mg/ Dextrose 250 mls @ 250 mls/hr 05/18/16 22:00 05/20/16 22: 42 IVPB 250 mls/hr HS CHINO Administration Loratadine 10 mg 05/19/16 11:00 05/21/16 09:41 Claritin - PO 10 mg DAILY CHINO Administration Methylprednisolone Sodium Succinate 40 mg 05/21/16 10:00 05/21/16 09:42 Solu-Medrol - IVPB 40 mg Q8H-IV CHINO Administration Non-Formulary Medication 0.4 mg 05/18/16 10:00 Folic Acid [Folic Acid] PO DAILY CHINO Pyridoxine HCl 100 mg 05/20/16 10:00 05/21/16 09:42 Vitamin B6 - PO 100 mg DAILY CHINO Administration Ranitidine HCl 150 mg 05/18/16 10:00 05/21/16 09:42 Zantac - PO 150 mg DAILY CHINO Administration Warfarin Sodium 6 mg 05/18/16 18:00 05/19/16 18:05 Coumadin - PO 6 mg [id number] CHINO Administration Warfarin Sodium 4 mg 05/20/16 18:00 05/20/16 18:15 Coumadin - PO 4 mg Mo@1800 CHINO Administration Microbiology 05/17/16 21:35 Blood - Peripheral Venous Blood Culture - Preliminary NO GROWTH OBTAINED AFTER 72 HOURS, INCUBATION TO CONTINUE FOR 2 DAYS. 05/17/16 21:40 Blood - Peripheral Venous Blood Culture - Preliminary NO GROWTH OBTAINED AFTER 72 HOURS, INCUBATION TO CONTINUE FOR 2 DAYS. 05/17/16 08:19 Urine - Urine Clean Catch Urine Culture - Final NO GROWTH OBTAINED ASSESSMENT/PLAN: 1) card Afib with RVR - ECHO (05/20/16), LV wnl, ef WNL, RA moderately dilated, mild mr, moderate tr, mild as - elevated bnp noted, lasix given x 1 on 05/19, pt appears euvolemic on exam, doubt CHF, likely viral URI - continue atenolol - continue coumadin, INR therapeutic hypertension - continue atenolol -cardiology consulted and following 2) pulm - cxr repeated 05/20/16, unchanged from prior no infilitrates or effusions noted , continue empiric and rocephin -bronchospasms noted on exam, start symbicort and solumedrol - continue duonebs F/E/N Fluids: PO intake adequate Electrolytes: replete as indicated Nutrition: low sodium diet DVT prophylaxis: subq heparin Visit type - Emergency Visit Emergency Visit: Yes ED Registration Date: 05/17/16 Care time: The patient presented to the Emergency Department on the above date and was hospitalized for further evaluation of their emergent condition. - New Patient This patient is new to me today: No - Critical Care Critical Care patient: No - Discharge Referral Referred to [facility] Med P.C.: No
[2016-05-21] MEDS: FOLIC ACID 1 MG TABLET (FP) PO SCH (11:30)
[2016-05-21] MEDS: WARFARIN NA 3 MG TABLET PO SCH (17:05)
[2016-05-21] MEDS: cefTRIAXone 1 GM/50 ML BAG (PRE-DOCKED) IVPB SCH (21:50)
[2016-05-21] MEDS: AZITHROMYCIN IVPB 500 MG in DEXTROSE 5%-WATER - 250 ML IVPB SCH (21:57)
[2016-05-22] MEDS: ALBUTEROL SO4 2.5/IPRATROPIUM 0.5 INH SOL 3 ML VIAL.NEB. NEB SCH ×3 (01:00→23:29)
[2016-05-22] MEDS: methylPREDNISolone NA SUCC 40 MG/1 ML VIAL IVPB SCH ×2 (01:05→10:31)
[2016-05-22 08:50] LABS: BASOPHIL 0.8 % (0-2.0); MCH 30.1 pg (25.7-33.7); MCHC 33.7 g/dl (32.0-36.0); MEAN CELL VOLUME 89.2 fl (80-96); MEAN PLT VOLUME 9.1 fl (7.5-11.1); NEUTROPHILS 85.6 % (42.8-82.8); PLATELET COUNT 174 K/MM3 (134-434); RDW 12.9 % (11.6-15.6); WHITE BLOOD COUNT 8.1 K/mm3 (4.0-10.0)
[2016-05-22 09:09] LABS: INR 3.07 (0.82-1.09); PROTHROMBIN TIME (PATIENT) 33.6 SEC (10.2-13.0)
[2016-05-22 09:21] LABS: ALBUMIN 3.6 g/dl (3.5-5.0); ALK PHOS 77 U/L (32-92); ANION GAP 12 (8-16); BILIRUBIN,TOTAL 0.5 mg/dl (0.2-1.0); CALCIUM 9.9 mg/dl (8.4-10.2); CO2 22 mmol/L (22-28); CREATININE 0.8 mg/dl (0.6-1.3); GLUCOSE,RANDOM 182 mg/dl (74-106); MAGNESIUM 1.9 mg/dL (1.8-2.4); PHOSPHOROUS 3.1 mg/dl (2.5-4.6); SGOT/AST 24 U/L (10-42); SGPT/ALT 25 U/L (10-40); TOT PROT 7.1 g/dl (6.4-8.3)
[2016-05-22] MEDS: FLUTICASONE PROP 0.05% 16 GM NASAL SPRAY NS SCH ×2 (10:00→21:11)
[2016-05-22] MEDS: FOLIC ACID 1 MG TABLET (FP) PO SCH (10:00)
[2016-05-22] MEDS: BUDESONIDE/FORMETEROL FUMARATE 80/4.5 mcg INHALER IH SCH ×2 (10:00→21:11)
[2016-05-22] MEDS: LORATADINE 10 MG TABLET PO SCH (10:00)
--- NOTE | 2016-05-22 10:27 | PN ---
[id number] any shortness of breath of chest pain. OBJECTIVE: patient is a 80 year-old female with a PMH of HTN, HLD, afib on coumadin, bladder cancer and cervical cancer. She was admitted from the emergency department for pneumonia, afib with RVR Vital Signs Period Temp Pulse Resp BP Sys/Zelaya Pulse Ox Last 24 Hr 97.4 F-98.5 F 78-104 17-20 88-127/69-91 94-98 GENERAL: The patient is awake, alert, and fully oriented, in no acute distress. HEAD: Normal with no signs of trauma. EYES: PERRL, extraocular movements intact, sclera anicteric, conjunctiva clear. No ptosis. ENT: Ears normal, nares patent, oropharynx clear without exudates, moist mucous membranes. NECK: Trachea midline, full range of motion, supple. LUNGS: Breath sounds equal, clear to auscultation bilaterally to apexes, diminshed to bases, moist cough noted, no wheezes, no crackles, no accessory muscle use. HEART: Regular rate and rhythm, S1, S2 without murmur, rub or gallop. ABDOMEN: Soft, nontender, nondistended, normoactive bowel sounds, no guarding, no rebound, no hepatosplenomegaly, no masses. EXTREMITIES: 2+ pulses, warm, well-perfused, no edema. NEUROLOGICAL: Cranial nerves II through XII grossly intact. Normal speech, gait not observed. PSYCH: Normal mood, normal affect. SKIN: Warm, dry, normal turgor, no rashes or lesions noted Laboratory Results - last 24 hr 05/21/16 05/22/16 05/22/16 07:00 08:18 08:18 WBC 8.1 RBC 4.51 Hgb 13.6 Hct 40.2 MCV 89.2 MCHC 33.7 RDW 12.9 Plt Count 174 MPV 9.1 Neutrophils % 70.0 85.6 H D Lymphocytes % 21.0 10.3 D Monocytes % 7.0 3.3 L Eosinophils % 2.0 0.0 D Basophils % 0.8 INR Sodium 140 Potassium 4.0 Chloride 106 Carbon Dioxide 22 Anion Gap 12 BUN 18 Creatinine 0.8 Creat Clearance w eGFR > 60 Random Glucose 182 H D Calcium 9.9 Phosphorus 3.1 Magnesium 1.9 Total Bilirubin 0.5 D AST 24 ALT 25 Alkaline Phosphatase 77 Total Protein 7.1 Albumin 3.6 05/22/16 08:18 WBC RBC Hgb Hct MCV MCHC RDW Plt Count MPV Neutrophils % Lymphocytes % Monocytes % Eosinophils % Basophils % INR 3.07 H D Sodium Potassium Chloride Carbon Dioxide Anion Gap BUN Creatinine Creat Clearance w eGFR Random Glucose Calcium Phosphorus Magnesium Total Bilirubin AST ALT Alkaline Phosphatase Total Protein Albumin Active Medications Generic Name Dose Route Start Last Admin Trade Name Freq PRN Reason Stop Dose Admin Acetaminophen 650 mg 05/20/16 21:29 05/20/16 21:39 Tylenol - PO 650 mg Q6H PRN Administration FEVER OR PAIN Albuterol/Ipratropium 1 amp 05/18/16 00:45 05/22/16 01:00 Duoneb - NEB 1 amp QIDR CHINO Administration Atenolol 50 mg 05/18/16 10:00 05/21/16 09:42 Tenormin - PO 50 mg DAILY CHINO Administration Budesonide/Formoterol Fumarate 2 puff 05/21/16 10:00 05/21/16 21:57 Symbicort 80/4.5mcg - IH 2 puff BID CHINO Administration Ceftriaxone Sodium 1 gm 05/18/16 22:00 05/21/16 21:50 Rocephin 1gm Ivpb (Pre-Docked) IVPB 1 gm HS CHINO Administration Protocol Cyanocobalamin 1,000 mcg 05/18/16 10:00 05/21/16 09:42 Vitamin B12 - PO 1,000 mcg DAILY CHINO Administration Fluticasone Propionate 1 spray 05/19/16 11:00 05/21/16 21:51 Flonase - NS 1 inh BID CHINO Administration Folic Acid 1 mg 05/21/16 11:15 05/21/16 11:30 Folic Acid - PO 1 mg DAILY CHINO Administration Guaifenesin 10 ml 05/18/16 00:51 05/19/16 05:48 Robitussin - PO 10 ml Q4H PRN Administration COUGH Azithromycin 500 mg/ Dextrose 250 mls @ 250 mls/hr 05/18/16 22:00 05/21/16 21: 57 IVPB 250 mls/hr HS CHINO Administration Loratadine 10 mg 05/19/16 11:00 05/21/16 09:41 Claritin - PO 10 mg DAILY CHINO Administration Methylprednisolone Sodium Succinate 40 mg 05/21/16 10:00 05/22/16 01:05 Solu-Medrol - IVPB 40 mg Q8H-IV CHINO Administration Pyridoxine HCl 100 mg 05/20/16 10:00 05/21/16 09:42 Vitamin B6 - PO 100 mg DAILY CHINO Administration Ranitidine HCl 150 mg 05/18/16 10:00 05/21/16 09:42 Zantac - PO 150 mg DAILY CHINO Administration Warfarin Sodium 6 mg 05/18/16 18:00 05/21/16 17:05 Coumadin - PO 6 mg [id number] CHINO Administration Warfarin Sodium 4 mg 05/20/16 18:00 05/20/16 18:15 Coumadin - PO 4 mg Mo@1800 CHINO Administration Microbiology 05/17/16 21:35 Blood - Peripheral Venous Blood Culture - Preliminary NO GROWTH OBTAINED AFTER 96 HOURS, INCUBATION TO CONTINUE FOR 1 DAYS. 05/17/16 21:40 Blood - Peripheral Venous Blood Culture - Preliminary NO GROWTH OBTAINED AFTER 96 HOURS, INCUBATION TO CONTINUE FOR 1 DAYS. 05/20/16 11:30 Sputum - Expectorated Gram Stain - Final 05/17/16 08:19 Urine - Urine Clean Catch Urine Culture - Final NO GROWTH OBTAINED IMAGING ECHO (05/20/16), LV wnl, ef WNL, RA moderately dilated, mild mr, moderate tr, mild as ASSESSMENT/PLAN: 1) card Afib with RVR - elevated bnp noted, lasix given x 1 on 05/19, pt appears euvolemic on exam, doubt CHF, likely viral URI - continue atenolol - hold coumadin tonight, 3.1 repeat INR tomm hypertension - continue atenolol -cardiology consulted and following 2) pulm - cxr repeated 05/20/16, unchanged from prior no infilitrates or effusions noted , continue empiric and rocephin and zithromax - ambulated patient, spo2 on RA 96% hr 87, pt denies any SALEH, continue symbicort , wean solumedorol to BID - continue duonebs F/E/N Fluids: PO intake adequate Electrolytes: replete as indicated Nutrition: low sodium diet DVT prophylaxis: subq heparin Visit type - Emergency Visit Emergency Visit: Yes ED Registration Date: 05/17/16 Care time: The patient presented to the Emergency Department on the above date and was hospitalized for further evaluation of their emergent condition. - New Patient This patient is new to me today: No - Critical Care Critical Care patient: No - Discharge Referral Referred to [facility] Med P.C.: No
[2016-05-22] MEDS: ATENOLOL 50 MG TABLET (FP) PO SCH (10:31)
[2016-05-22] MEDS: PYRIDOXINE HCL (B-6) 50 MG TABLET (FP) PO SCH (10:32)
[2016-05-22] MEDS: RANITIDINE HCL 150 MG TABLET (FP) PO SCH (10:32)
[2016-05-22] MEDS: CYANOCOBALAMIN 1,000 MCG TABLET (FP) PO SCH (10:32)
[2016-05-22] MEDS ORDERED: PT OWN MED DRAWER 7, Y5N ONE ×2 (11:46→21:10)
[2016-05-22] MEDS: cefTRIAXone 1 GM/50 ML BAG (PRE-DOCKED) IVPB SCH (21:11)
[2016-05-22] MEDS: AZITHROMYCIN IVPB 500 MG in DEXTROSE 5%-WATER - 250 ML IVPB SCH (21:12)
[2016-05-23] MEDS: methylPREDNISolone NA SUCC 40 MG/1 ML VIAL IVPB SCH (01:07)
[2016-05-23] MEDS: ALBUTEROL SO4 2.5/IPRATROPIUM 0.5 INH SOL 3 ML VIAL.NEB. NEB SCH (06:13)
[2016-05-23 09:31] LABS: BASOPHIL 0.8 % (0-2.0); MCH 29.8 pg (25.7-33.7); MCHC 33.1 g/dl (32.0-36.0); MEAN CELL VOLUME 89.9 fl (80-96); MEAN PLT VOLUME 8.9 fl (7.5-11.1); NEUTROPHILS 87.8 % (42.8-82.8); PLATELET COUNT 219 K/MM3 (134-434); RDW 13.1 % (11.6-15.6); WHITE BLOOD COUNT 10.9 K/mm3 (4.0-10.0)
[2016-05-23] MEDS ORDERED: PT OWN MED DRAWER 7, Y5N ONE (09:48)
[2016-05-23] MEDS: PYRIDOXINE HCL (B-6) 50 MG TABLET (FP) PO SCH (09:50)
[2016-05-23] MEDS: FOLIC ACID 1 MG TABLET (FP) PO SCH (09:50)
[2016-05-23] MEDS: LORATADINE 10 MG TABLET PO SCH (09:50)
[2016-05-23] MEDS: CYANOCOBALAMIN 1,000 MCG TABLET (FP) PO SCH (09:50)
[2016-05-23] MEDS: ATENOLOL 50 MG TABLET (FP) PO SCH (09:50)
[2016-05-23] MEDS: RANITIDINE HCL 150 MG TABLET (FP) PO SCH (09:53)
[2016-05-23] MEDS: BUDESONIDE/FORMETEROL FUMARATE 80/4.5 mcg INHALER IH SCH (09:54)
[2016-05-23] MEDS: FLUTICASONE PROP 0.05% 16 GM NASAL SPRAY NS SCH (09:55)
[2016-05-23] MEDS ORDERED: methylPREDNISolone NA SUCC 40 MG/1 ML VIAL IVPB SCH (10:00)
[2016-05-23 10:05] LABS: INR 3.1 (0.82-1.09); PROTHROMBIN TIME (PATIENT) 33.9 SEC (10.2-13.0)
--- NOTE | 2016-05-23 12:21 | DS ---
Physical Exam: SUBJECTIVE: Patient seen and examined, patient reports feeling much better, denies any chest pain or shortness of breath. OBJECTIVE: Vital Signs Period Temp Pulse Resp BP Sys/Zelaya Pulse Ox Last 24 Hr 97.5 F-97.8 F 80-96 18-20 115-133/65-87 92-98 PHYSICAL EXAM GENERAL: The patient is awake, alert, and fully oriented, in no acute distress. HEAD: Normal with no signs of trauma. EYES: PERRL, extraocular movements intact, sclera anicteric, conjunctiva clear. ENT: Ears normal, nares patent, oropharynx clear without exudates, moist mucous membranes. NECK: Trachea midline, full range of motion, supple. LUNGS: Breath sounds equal, clear to auscultation bilaterally, no wheezes, no crackles, no accessory muscle use. HEART: Regular rate and rhythm, S1, S2 without murmur, rub or gallop. ABDOMEN: Soft, nontender, nondistended, normoactive bowel sounds, no guarding, no rebound, no hepatosplenomegaly, no masses. EXTREMITIES: 2+ pulses, warm, well-perfused, no edema. NEUROLOGICAL: Cranial nerves II through XII grossly intact. Normal speech, gait not observed. PSYCH: Normal mood, normal affect. SKIN: Warm, dry, normal turgor, no rashes or lesions noted. LABS Laboratory Results - last 24 hr 05/23/16 05/23/16 05/23/16 09:00 09:00 09:00 WBC 10.9 H D RBC 4.43 Hgb 13.2 Hct 39.8 MCV 89.9 MCHC 33.1 RDW 13.1 Plt Count 219 D MPV 8.9 Neutrophils % 87.8 H Lymphocytes % 9.3 Monocytes % 2.1 L Eosinophils % 0.0 Basophils % 0.8 INR 3.10 H Sodium 139 Potassium 4.2 Chloride 105 Carbon Dioxide 23 Anion Gap 11 BUN 23 H D Creatinine 1.0 D Random Glucose 201 H Calcium 10.0 HOSPITAL COURSE: Date of Admission:05/17/16 Date of Discharge: 05/23/16 Minutes to complete discharge: 45 Discharge Summary Reason For Visit: CHEST PAIN/PNEUMONIA Current Active Problems Afib (Acute) Chest pain (Acute) Dyspnea (Acute) HTN (hypertension) (Acute) Pneumonia (Acute) Condition: Good - Instructions Referrals: Roland Davidson MD [Primary Care Provider] - - Home Medications Comprehensive Discharge Medication List: Ambulatory Orders Pyridoxine HCl (B-6) [Vitamin B6 -] 100 mg PO DAILY 06/11/13 Quinapril HCl [Accupril -] 40 mg PO DAILY 06/11/13 Atenolol 50 mg PO DAILY tablet 01/27/15 Cyanocobalamin (Vitamin B-12) [Vitamin B-12] 1,000 mcg PO DAILY tablet Folic Acid 0.4 mg PO DAILY tablet 01/04/16 Guaifenesin AC [Robitussin AC] 10 ml PO Q8H PRN 05/17/16 Warfarin Sodium [Coumadin] 4 mg PO MO 05/17/16 Warfarin Sodium [Coumadin] 6 mg PO SUTUWETHFRSA 05/17/16 - Discharge Referral Referred to [facility] Med P.C.: No Physician Referral: Roland Davidson MD (Int Med)
[2016-05-23 13:59] VITALS: BP 115/79; PULSE 89; TEMP 97.9
== END 2016-05-23 16:30 | disposition home or self-care (01) | DRG 194 ==
LOC: FER 21:09 → FM/S 23:28
PROVIDERS: ADMIT Internal Medicine; ATTEND Nurse Practitioner Family
DX: J18.9 Pneumonia, unspecified organism (principal); E87.1 Hypo-osmolality and hyponatremia; I48.2 Chronic atrial fibrillation; E78.5 Hyperlipidemia, unspecified; I10 Essential (primary) hypertension; D12.6 Benign neoplasm of colon, unspecified; K57.90 Diverticulosis of intestine, part unspecified, without perforation or abscess without bleeding; K64.8 Other hemorrhoids; K63.5 Polyp of colon; J32.8 Other chronic sinusitis; Z96.643 Presence of artificial hip joint, bilateral; Z85.51 Personal history of malignant neoplasm of bladder; Z85.41 Personal history of malignant neoplasm of cervix uteri; Z79.01 Long term (current) use of anticoagulants; Z87.891 Personal history of nicotine dependence
CPT/HCPCS: 36415; 71010-TC; 71020-TC; 80048; 80053; 81003; 81015; 82550; 83735; 83880; 84100; 84484; 85025; 85610; 87040; 87070; 87086; 87205; 87804; 93005; 93306-TC; 94640; 94761; 99284-25; J1644

== ENCOUNTER 2016-08-06 10:55 | Emergency (ER) | payer OTHER, BC ==
--- NOTE | 2016-08-06 10:58 | PDOC ---
History of Present Illness - General History Source: EMS, Old Records Exam Limitations: Clinical Condition <Margaret Mota - Last Filed: 08/06/16 11:55> - History of Present Illness Initial Comments: 08/06/16 11:16 The patient is a 80 year old female, with a significant past medical history of Afib (on Coumadin) and hypertension, who presents to the emergency department via ems for witnessed syncope just a few minutes prior to her arrival. The patient was last known well, standing and speaking, near her doctors office just down the block from the hospital about 25 minutes prior to arrival. As per ems, the patient was witnessed with slurred speech and subsequently dropped to the floor. As per ems, the patient was aphasic in route to the ED and moving extremities without purpose. Allergies: quinine, apixaban, dabigatran, extexilate mesylate PCP - Dr. Davidson <Nadja Siu - Last Filed: 08/06/16 12:06> - General Stated Complaint: WEAKNESS Time Seen by Provider: 08/06/16 10:58 Past History - Past Medical History Anemia: No Asthma: No Cancer: Yes (Bladder, CERVIX) Cardiac Disorders: Yes (HX OF ATRIAL FIBRILLATION) CVA: No COPD: No CHF: No Dementia: No Diabetes: No GI Disorders: Yes (COLON ADENOMA, DIVERTICULOSIS, HEMORRHOIDS) Disorders: Yes (BLADDER CA) HTN: Yes Hypercholesterolemia: Yes Liver Disease: No Seizures: No Thyroid Disease: No - Surgical History Abdominal Surgery: No Appendectomy: No Cardiac Surgery: Yes (CARDIOVERTED PAROXYSMAL ATRIAL FIBRILLATION) Cholecystectomy: No Lung Surgery: No Neurologic Surgery: No Orthopedic Surgery: Yes (SUSI. HIP REPLACEMENTS) - Psycho/Social/Smoking Cessation Hx Anxiety: No Suicidal Ideation: No Smoking History: Former smoker Have you smoked in the past 12 months: No If you are a former smoker, when did you quit?: 25 YRS AGO Hx Alcohol Use: Yes (SOCIAL) Drug/Substance Use Hx: No Substance Use Type: None Hx Substance Use Treatment: No <Margaret Mota - Last Filed: 08/06/16 11:55> <Nadja Siu - Last Filed: 08/06/16 12:06> - Past Medical History Allergies/Adverse Reactions: Allergies Allergy/AdvReac Type Severity Reaction Status Date / Time quinine Allergy Swelling Verified 08/06/16 11:27 apixaban [From Eliquis] AdvReac Bleeding Verified 08/06/16 11:27 dabigatran etexilate mesylate AdvReac Bleeding Verified 08/06/16 11:27 [From Pradaxa] Home Medications: Ambulatory Orders Pyridoxine HCl (B-6) [Vitamin B6 -] 100 mg PO DAILY 06/11/13 Atenolol 50 mg PO DAILY tablet 01/27/15 Cyanocobalamin (Vitamin B-12) [Vitamin B-12] 1,000 mcg PO DAILY tablet Folic Acid 0.4 mg PO DAILY tablet 01/04/16 Guaifenesin AC [Robitussin AC -] 10 ml PO Q8H PRN 05/17/16 Warfarin Sodium [Coumadin] 4 mg PO MO 05/17/16 Warfarin Sodium [Coumadin] 6 mg PO SUTUWETHFRSA 05/17/16 Acetaminophen [Tylenol .Regular Strength -] 650 mg PO Q6H PRN #0 tablet Albuterol Sulfate Inhaler - [Ventolin Hfa Inhaler -] 2 inh IH Q4H PRN #1 inh 05/10 Budesonide/Formeterol Fumarate [SYMBICORT 80/4.5mcg -] 2 puff IH BID #1 inhaler 05/23/16 Fluticasone Prop 0.05% Nasal [Flonase -] 2 spray NS DAILY #1 spray 05/23/16 Guaifenesin [Robitussin -] 10 ml PO Q4H PRN #0 cup 05/23/16 Loratadine [Claritin -] 10 mg PO DAILY tablet 05/23/16 Prednisone [Deltasone -] 5 mg PO ASDIR #32 tab 05/23/16 Review of Systems - Review of Systems Able to Perform ROS?: No (altered) <Nadja Siu - Last Filed: 08/06/16 12:06> *Physical Exam - Physical Exam Comments: 08/06/16 12:03 GENERAL: (+) Confused and combative. Awake, HEAD: No signs of trauma EYES: (+) left pupil post surgical right 3mm and reactive. EOMI, sclera anicteric, conjunctiva clear ENT: Auricles normal inspection, hearing grossly normal, nares patent, oropharynx clear without exudates. Moist mucosa NECK: Normal ROM, supple, no lymphadenopathy, JVD, or masses LUNGS: Breath sounds equal, clear to auscultation bilaterally. No wheezes, and no crackles HEART: Regular rate and rhythm, normal S1 and S2, no murmurs, rubs or gallops ABDOMEN: Soft, nontender, normoactive bowel sounds. No guarding, no rebound. No masses EXTREMITIES: Normal range of motion, no edema. No clubbing or cyanosis. No cords, erythema, or tenderness NEUROLOGICAL: (+) confused, combative, incomprehensible speech SKIN: Warm, Dry, normal turgor, no rashes or lesions noted. <Nadja Siu - Last Filed: 08/06/16 12:06> Procedures - Intubation Time of Intubation: 11:30 Intubation Method: orotracheal Blade used: Mac Tube Size (Fr): 7.5 Medications: Etomidate, Succinylcholine Tube position @ lip (cm): 22 Tube position confirmed by: Direct visualization, CO2 detector, Chest x-ray Breath Sounds after Intubation: equal Intubation Complications: no complications Post Intubation Xray: Yes <Margaret Mota - Last Filed: 08/06/16 11:55> Heart Score/ECG Review - ECG Intrepretation Comment:: 08/06/16 12:06 ECG was read by Dr. Mota at 12:03 Impression: Atrial fibrillation with rapid ventricular response. Vent. Rate: 107 bpm <Nadja Siu - Last Filed: 08/06/16 12:06> ED Treatment Course - LABORATORY CBC & Chemistry Diagram: 08/06/16 11:39 08/06/16 11:39 <Margaret Mota - Last Filed: 08/06/16 11:55> - LABORATORY CBC & Chemistry Diagram: 08/06/16 11:39 08/06/16 11:39 - RADIOLOGY Radiograph Interpretation: 08/06/16 11:[address] was read by Dr. Elder at 11:[address] Mota at 11:15 Impression: 2 adjacent foci of acute/subacute hemorrhage in the left frontal high convexity with mild surrounding edema. Largest focus measures 2.2cm in diameter. <Nadja Siu - Last Filed: 08/06/16 12:06> Medical Decision Making - Medical Decision Making 08/06/16 11:56 80-year-old female with history of hypertension and atrial fibrillation on Coumadin presents the emergency department by EMS after having a witnessed generalized tonic-clonic seizure. The patient had altered mentation upon arrival to the ED. Fingerstick in the field was in the 120 range. Differential diagnosis includes but is not limited to: CVA, intracranial hemorrhage, new onset seizure, electrolyte abnormality, supratherapeutic INR, dehydration, infection, toxic/metabolic derangement. Plan: 1. CT head 2. EKG 3. Chest x-ray 4. Labs 5. Observe and reevaluate Addendum: CT head reveals 2 adjacent foci of acute/subacute intracranial hemorrhage in the left frontal high convexity with mild surrounding edema. The largest focus measures 2.2 cm in diameter. The patient was combative, trying to get off the stretcher therefore 2 of Ativan IV was given without significant improvement of her mental status. She had incomprehensible speech. The patient was intubated for airway protection (see procedure note). She was given 1 g of Keppra IV. She was also given vitamin K 10 mg IV for reversal of the Coumadin. It is recognized that she requires further reversal either with FFP or KCentra however transfer to a higher level of care takes precedence as this process will take several hours. The patient was also started on a Cardene drip for BP control. I have spoken to the neurosurgeon at [facility], Dr Scotty Cardoso, who is accepted the patient for transfer. I have also spoken to the patient's daughter, Leigh, who is at the bedside who agrees to transfer. <Margaret Mota - Last Filed: 08/06/16 11:55> - Medical Decision Making 08/06/16 11:25 Dr. Pace, Neurology, was called at 11:19 and the patient's case and head CT report were discussed. 08/06/16 11:44 [facility] transfer center was called at this time requesting a transfer of this patient to Neurosurgery. I have been assured the covering physician for neurosurgery at [facility] will return the call shortly. <Nadja Siu - Last Filed: 08/06/16 12:06> *DC/Admit/Observation/Transfer - Attestations Physician Attestion: 08/06/16 11:59 I, Dr. Margaret Mota, attest that the scribes documentation that appears above has been prepared under my direction and personally reviewed by me in its entirety. I confirmed that the note above accurately reflects all work, treatment, procedures, and medical decision-making performed by me. <Margaret Mota - Last Filed: 08/06/16 11:55> <Nadja Siu - Last Filed: 08/06/16 12:06> Diagnosis at time of Disposition: ICH (intracerebral hemorrhage), Afib, HTN (hypertension) - Discharge Dispostion Disposition: TRANSFER ACUTE CARE/OTHER HOSP
[2016-08-06] MEDS ORDERED: SODIUM CHLORIDE 1,000 ML IV SCH (11:00)
[2016-08-06] MEDS ORDERED: PHYTONADIONE 10 MG/1 ML AMP IVPB ONE (11:10)
[2016-08-06] MEDS ORDERED: levETIRAcetam 500 MG/5 ML INJECTION VIAL IVPB ONE ×2 (11:10→11:11)
[2016-08-06] MEDS ORDERED: PHYTONADIONE 10 MG/1 ML AMP ONE (11:11)
[2016-08-06] MEDS ORDERED: LORAZEPAM CARPU-JECT 2 MG/ML DISP.SYRIN ONE (11:15)
[2016-08-06] MEDS ORDERED: RAPID SEQUENCE INTUBATION KIT NR ONE (11:18)
[2016-08-06] MEDS ORDERED: PROPOFOL 100 ML ONE (11:22)
[2016-08-06] MEDS ORDERED: ETOMIDATE 40 MG/20 ML VIAL IVPUSH ONE (11:38)
[2016-08-06] MEDS ORDERED: PROPOFOL 200 MG/20 ML VIAL IVPUSH ONE (11:38)
[2016-08-06] MEDS ORDERED: SUCCINYLCHOLINE CHLORIDE 200 MG/10 ML VIAL IVPUSH ONE (11:38)
[2016-08-06] MEDS ORDERED: niCARdipine HCL 25 MG/10 ML AMPUL IVPB ONE (11:42)
[2016-08-06 11:45] LABS: BASOPHIL 0.4 % (0-2.0); EOSINOPHIL 0.1 % (0-4.5); MCH 29.6 pg (25.7-33.7); MEAN CELL VOLUME 89.7 fl (80-96); MEAN PLT VOLUME 8.9 fl (7.5-11.1); NEUTROPHILS 86.2 % (42.8-82.8); PLATELET COUNT 148 K/MM3 (134-434); WHITE BLOOD COUNT 11.9 K/mm3 (4.0-10.0)
[2016-08-06] MEDS ORDERED: PROPOFOL 100 ML IVPB SCH (11:45)
[2016-08-06] MEDS ORDERED: NICARDIPINE 25 MG in DEXTROSE 5%-WATER - 240 ML IVPB SCH (12:00)
[2016-08-06] MEDS ORDERED: LORAZEPAM CARPU-JECT 2 MG/ML DISP.SYRIN IVPUSH ONE (12:04)
[2016-08-06 12:11] LABS: ALBUMIN 3.9 g/dl (3.4-5.0); ANION GAP 14 (8-16); CHOLESTEROL 184 mg/dL (50-200); CO2 22 mmol/L (21-32); COCKROFT - GAULT 0; CREATININE 0.9 mg/dL (0.55-1.02); GLUCOSE,RANDOM 144 mg/dL (74-106); LDL CHOLESTEROL (ONLY SJRH) 98 mg/dL (5-100); SGPT/ALT 53 U/L (12-78); TOT PROT 6.8 g/dl (6.4-8.2)
[2016-08-06 12:12] LABS: ALK PHOS 112 U/L (45-117); TROPONIN I < 0.02 ng/ml (0.00-0.05)
[2016-08-06 12:23] LABS: SGOT/AST 55 U/L (15-37)
[2016-08-06 12:25] LABS: PROTHROMBIN TIME (PATIENT) 47.8 SEC (9.98-11.88)
[2016-08-06 12:28] LABS: ACTIVATED PTT 65.8 SECONDS (26.9-34.4)
[2016-08-06 12:35] LABS: ALLENS TEST POSITIVE; ART PUNCT SITE RIGHT RADIAL; ARTERIAL BLOOD GAS BASE EXCESS -1.1 meq/l (-2-2); ARTERIAL BLOOD GAS HCO3 22.9 meq/L (22-26); METHEMOGLOBIN 0.5 % (0.4-1.5); PT. ON O2? YES
[2016-08-06 12:36] LABS: LPM/O2% 100%; MECH. VENT. Y; TYPE OF O2 MECH VENT; VENT RATE 14; VT/PRESS 500
[2016-08-06 12:42] LABS: URINE APPEARANCE CLEAR; URINE BILIRUBIN NEGATIVE (NEGATIVE); URINE COLOR STRAW; URINE GLUCOSE (UA) 1+ (NEGATIVE); URINE KETONE TRACE (NEGATIVE); URINE LEUK ESTERASE NEGATIVE (NEGATIVE); URINE NITRITE NEGATIVE (NEGATIVE); URINE UROBILINOGEN NEGATIVE E.U./dl (0.2-1.0)
[2016-08-06 12:46] LABS: INR 4.22 (0.82-1.09)
[2016-08-06 12:47] VITALS: BMI 27.3
[2016-08-06 12:47] LABS: URINE BLOOD 2+ (NEGATIVE); URINE PROTEIN 1+ (NEGATIVE)
[2016-08-06 12:54] LABS: URINE HYALINE CAST 3 /lpf; URINE MUCUS RARE; URINE RBC 1 /hpf (0-3); URINE WBC 1 /hpf (3-5)
[2016-08-06 13:10] VITALS: BP 120/90; PULSE 108; TEMP 98.9
--- NOTE | 2016-08-06 17:05 | EKG ---
Test Reason : Blood Pressure : / mmHG Vent. Rate : 107 BPM Atrial Rate : 115 BPM P-R Int : 000 ms QRS Dur : 070 ms QT Int : 342 ms P-R-T Axes : 000 -38 005 degrees QTc Int : 456 ms ATRIAL FIBRILLATION WITH RAPID VENTRICULAR RESPONSE LEFT AXIS DEVIATION SEPTAL INFARCT (CITED ON OR BEFORE 11-JUN-2013) ABNORMAL ECG WHEN COMPARED WITH ECG OF 17-MAY-2016 22:01, T WAVE VARIATION Confirmed by GILLES REAVES, AMBAR ([id number]) on 08/06/2016 5:05:18 PM Referred By: Confirmed By:AMBAR CAMPOVERDE MD
== END 2016-08-06 13:15 | disposition short-term general hospital (02) ==
LOC: JER 10:55
PROC: 0BH17EZ Insertion of Endotracheal Airway into Trachea, Via Natural or Artificial Opening (ICD-10-PCS; principal; 2016-08-06)
PROC: 3E0337Z Introduction of Electrolytic and Water Balance Substance into Peripheral Vein, Percutaneous Approach (ICD-10-PCS; 2016-08-06)
PROC: 3E033NZ Introduction of Analgesics, Hypnotics, Sedatives into Peripheral Vein, Percutaneous Approach (ICD-10-PCS; 2016-08-06)
PROC: 3E033GC Introduction of Other Therapeutic Substance into Peripheral Vein, Percutaneous Approach (ICD-10-PCS; 2016-08-06)
DX: I61.9 Nontraumatic intracerebral hemorrhage, unspecified (principal); R47.81 Slurred speech; I10 Essential (primary) hypertension; Z87.891 Personal history of nicotine dependence; I48.91 Unspecified atrial fibrillation; Z79.01 Long term (current) use of anticoagulants; E78.00 Pure hypercholesterolemia, unspecified; Z85.41 Personal history of malignant neoplasm of cervix uteri; Z85.51 Personal history of malignant neoplasm of bladder; Z87.19 Personal history of other diseases of the digestive system; Z96.643 Presence of artificial hip joint, bilateral
CPT/HCPCS: 31500; 36415; 36600; 70450-TC; 71010-TC; 80053; 81003; 81015; 82375; 82465; 82550; 82553; 82803; 83050; 83718; 83721; 84478; 84484; 85025; 85610; 85730; 86850; 86900; 86901; 93005; 93010; 96361; 96365; 96366; 96375; 99285-25

== ENCOUNTER 2020-08-20 17:01 | Observation (INO) | payer OTHER, BC ==
[2020-08-20] MEDS ORDERED: FAMOTIDINE 20 MG/50 ML IVPB 20 MG/50 ML MG IVPB ONE ×2 (18:03→18:16)
[2020-08-20] MEDS ORDERED: MAG HYDROX/AL HYDROX/SIMETH 30 ML UNIT-DOSE CUP PO ONE (18:03)
[2020-08-20] MEDS ORDERED: MAG HYDROX/AL HYDROX/SIMETH 30 ML UNIT-DOSE CUP ONE (18:05)
[2020-08-20 18:09] LABS: BASO % 0.2 % (0-2.0); EOS % 0.4 % (0-4.5); HEMOGLOBIN 11.5 GM/dl (10.7-15.3); LYMPH % 16.2 % (8-40); MCH 29.8 pg (25.7-33.7); MCHC 32.8 g/dl (32.0-36.0); MEAN PLT VOLUME 8.2 fl (7.5-11.1); MONO % 10.6 % (3.8-10.2); NEUT % 72.6 % (42.8-82.8); PLATELET COUNT 165 K/MM3 (134-434); RBC 3.84 M/mm3 (3.60-5.2); RDW 15.1 % (11.6-15.6); WHITE BLOOD COUNT 7.1 K/mm3 (4.0-10.8)
[2020-08-20 18:12] LABS: ALBUMIN 4.1 g/dl (3.4-5.0); ALK PHOS 131 U/L (45-117); ANION GAP 12 MMOL/L (8-16); BILIRUBIN,TOTAL 2.1 mg/dl (0.2-1); CALCIUM 9.9 mg/dl (8.5-10); CHLORIDE 103 mmol/L (98-107); CO2 27 mmol/L (21-32); CREATININE 0.8 mg/dl (0.55-1.3); GLUCOSE,RANDOM 105 mg/dl (74-106); SGOT/AST 31 U/L (15-37); SGPT/ALT 23 U/L (13-61); SODIUM 142 mmol/L (136-145); TOT PROT 6.9 g/dl (6.4-8.2)
[2020-08-20 18:35] LABS: LIPASE 127 U/L (73-393)
[2020-08-20 18:39] LABS: INR 1.18 (0.83-1.09); PROTHROMBIN TIME (PATIENT) 14.5 SEC (9.7-13.0)
[2020-08-20 18:42] LABS: ACTIVATED PTT 28.6 SECONDS (25.2-36.5)
[2020-08-20 23:31] LABS: EPITHELIAL CELLS FEW /hpf
[2020-08-21 00:13] VITALS: BMI 23.1
[2020-08-21] MEDS ORDERED: LOTEPREDNOL ETABONATE OU PRN (01:07)
[2020-08-21] MEDS ORDERED: POTASSIUM CHLORIDE TABS 10 MEQ TABLET.ER (FP) PO SCH (07:00)
[2020-08-21] MEDS ORDERED: FUROSEMIDE 20 MG TABLET (FP) PO SCH (07:00)
[2020-08-21 09:15] LABS: BASO % 0.6 % (0-2.0); HEMATOCRIT 33.3 % (32.4-45.2); HEMOGLOBIN 10.9 GM/dl (10.7-15.3); LYMPH % 23.9 % (8-40); MCHC 32.6 g/dl (32.0-36.0); MEAN PLT VOLUME 8.9 fl (7.5-11.1); MONO % 9.3 % (3.8-10.2); NEUT % 64.2 % (42.8-82.8); PLATELET COUNT 133 K/MM3 (134-434); RBC 3.62 M/mm3 (3.60-5.2); RDW 15.1 % (11.6-15.6); WHITE BLOOD COUNT 4.8 K/mm3 (4.0-10.8)
[2020-08-21] MEDS ORDERED: amLODIPine BESYLATE 2.5 MG TABLET (FP) PO SCH ×2 (10:00→22:00)
[2020-08-21] MEDS ORDERED: CHOLECALCIFEROL (VIT D3) 1,000 UNIT (25 MCG) TABLET PO SCH (10:00)
[2020-08-21] MEDS ORDERED: levETIRAcetam 250 MG TABLET PO SCH (10:00)
[2020-08-21] MEDS ORDERED: PATIENT'S OWN MEDICATION (NON-FORMULARY) (Folic Acid [Folic Acid] 0.8 MG Tablet) PO SCH (10:00)
[2020-08-21] MEDS ORDERED: CYANOCOBALAMIN 1,000 MCG TABLET (FP) PO SCH (10:00)
[2020-08-21] MEDS ORDERED: PYRIDOXINE HCL (B-6) 50 MG TABLET (FP) PO SCH (10:00)
[2020-08-21 11:31] LABS: CHLORIDE 107 mmol/L (98-107); SODIUM 143 mmol/L (136-145)
[2020-08-21 11:33] LABS: CALCIUM 9.5 mg/dL (8.5-10.1)
[2020-08-21 11:34] LABS: ALBUMIN 3.4 g/dl (3.4-5.0); ANION GAP 7 MMOL/L (8-16); BLOOD UREA NITROGEN 18.1 mg/dL (7-18); CO2 28 mmol/L (21-32); GLUCOSE,RANDOM 72 mg/dL (74-106); MAGNESIUM 2.3 mg/dL (1.8-2.4)
[2020-08-21 11:37] LABS: CREATININE 0.8 mg/dL (0.55-1.3); SGOT/AST 37 U/L (15-37); SGPT/ALT 24 U/L (13-61)
[2020-08-21 11:38] LABS: BILIRUBIN,TOTAL 1.7 mg/dL (0.2-1); TOT PROT 6.4 g/dl (6.4-8.2)
[2020-08-21 11:40] LABS: ALK PHOS 145 U/L (45-117)
[2020-08-21] MEDS ORDERED: PANTOPRAZOLE 40 MG TABLET PO SCH (12:00)
[2020-08-21] MEDS ORDERED: ATENOLOL 50 MG TABLET (FP) PO ONE (12:00)
[2020-08-21 12:28] LABS: BILIRUBIN,DIRECT 0.4 mg/dL (0.0-0.2)
[2020-08-21 14:31] VITALS: BP 131/88; PULSE 76; TEMP 98
[2020-08-21] MEDS ORDERED: MAGNESIUM OXIDE 400 MG TABLET (FP) PO SCH (22:00)
[2020-08-21] MEDS ORDERED: ASPIRIN COATED 81 MG TABLET.EC PO SCH (22:00)
[2020-08-21] MEDS ORDERED: ROSUVASTATIN CA 10 MG TABLET (FP) PO SCH (22:00)
[2020-08-22] MEDS ORDERED: ATENOLOL 50 MG TABLET (FP) PO SCH (10:00)
[2020-08-22] MEDS ORDERED: FUROSEMIDE 20 MG TABLET (FP) PO SCH (10:00)
[2020-08-22] MEDS ORDERED: POTASSIUM CHLORIDE TABS 10 MEQ TABLET.ER (FP) PO SCH (10:00)
[2020-08-22] MEDS ORDERED: ROSUVASTATIN CA 10 MG TABLET (FP) PO SCH (10:00)
== END 2020-08-21 14:04 | disposition home or self-care (01) ==
LOC: FER 17:01 → INTOOBSV 20:18 → FM/S 20:18
PROVIDERS: ADMIT Internal Medicine; ATTEND Nurse Practitioner Acute Care
PROC: BF42ZZZ Ultrasonography of Gallbladder (ICD-10-PCS; principal; 2020-08-20)
PROC: 3E033GC Introduction of Other Therapeutic Substance into Peripheral Vein, Percutaneous Approach (ICD-10-PCS; 2020-08-20)
DX: R07.9 Chest pain, unspecified (principal); I10 Essential (primary) hypertension; I48.91 Unspecified atrial fibrillation; G25.81 Restless legs syndrome; G40.909 Epilepsy, unspecified, not intractable, without status epilepticus; K57.30 Diverticulosis of large intestine without perforation or abscess without bleeding; Z79.82 Long term (current) use of aspirin; Z86.73 Personal history of transient ischemic attack (TIA), and cerebral infarction without residual deficits; Z96.643 Presence of artificial hip joint, bilateral; Z85.41 Personal history of malignant neoplasm of cervix uteri; Z85.51 Personal history of malignant neoplasm of bladder; Z87.891 Personal history of nicotine dependence
CPT/HCPCS: 36415; 71046-TC-FY; 74019-TC-FY; 76705-TC; 80053; 81003; 81015; 82248; 82550; 83690; 83735; 84484; 85025; 85610; 85730; 87086; 87186; 93005; 96365; 99285-25; C9803; G0378; U0003; U0005

== ENCOUNTER 2021-02-17 13:08 | Inpatient (IN) | payer OTHER, BC ==
[2021-02-17 13:28] VITALS: BMI 20.3
[2021-02-17] MEDS ORDERED: SODIUM CHLORIDE 0.9% 500 ML INFUS.BAG IV ONE (14:01)
[2021-02-17] MEDS ORDERED: ACETAMINOPHEN 1000 MG/100 ML VIAL IVPB ONE (14:01)
[2021-02-17] MEDS ORDERED: ACETAMINOPHEN INJECTION 100 ML IVPB ONE (14:13)
[2021-02-17 15:16] LABS: HEMATOCRIT 33.3 % (32.4-45.2); HEMOGLOBIN 10.4 GM/dl (10.7-15.3); MCH 28.3 pg (25.7-33.7); MCHC 31.2 g/dl (32.0-36.0); MEAN CELL VOLUME 90.8 fl (80-96); MEAN PLT VOLUME 8.4 fl (7.5-11.1); PLATELET COUNT 200 10^3/uL (134-434); RBC 3.66 M/mm3 (3.60-5.2); WHITE BLOOD COUNT 8.5 K/mm3 (4.0-10.8)
[2021-02-17 15:34] LABS: ACTIVATED PTT 25.9 SECONDS (25.2-36.5)
[2021-02-17 15:37] LABS: ALBUMIN 3.9 g/dl (3.4-5.0); BILIRUBIN,TOTAL 1.9 mg/dl (0.2-1); CALCIUM 9.9 mg/dl (8.5-10); CREATININE 0.8 mg/dl (0.55-1.3); MAGNESIUM 1.7 mg/dL (1.8-2.4); TOT PROT 7.1 g/dl (6.4-8.2)
[2021-02-17 15:39] LABS: INR 1.34 (0.82-1.09); PROTHROMBIN TIME (PATIENT) 14.9 SEC (10.2-13.0)
[2021-02-17] MEDS ORDERED: MAGNESIUM SULF 50% (8.12 MEQ/2 ML-1 GM VIAL) IVPB ONE (15:43)
[2021-02-17 15:50] LABS: PLATELET ESTIMATE ADEQUATE
[2021-02-17] MEDS ORDERED: KCL 10 MEQ IVPB 10 MEQ/100 ML INFUS.BAG IVPB ONE ×2 (16:21→20:05)
[2021-02-17] MEDS ORDERED: MAGNESIUM 1GM/D5W - 1 GM/100 ML IVPB IVPB ONE (16:21)
[2021-02-17] MEDS ORDERED: CEFTRIAXONE 1 GM in DEXTROSE 5%-WATER - 100 ML IVPB ONE (16:29)
[2021-02-17] MEDS ORDERED: cefTRIAXone SODIUM 1 GM VIAL ONE (16:38)
[2021-02-17] MEDS ORDERED: ACETAMINOPHEN 1000 MG/100 ML VIAL IVPB PRN (16:56)
[2021-02-17] MEDS ORDERED: LOTEPREDNOL ETABONATE OU PRN (16:58)
[2021-02-17] MEDS: KCL 10 MEQ IVPB 10 MEQ/100 ML INFUS.BAG IVPB SCH ×2 (17:55→20:05)
[2021-02-17] MEDS: levETIRAcetam 250 MG TABLET PO SCH (21:33)
[2021-02-18 09:50] LABS: ALBUMIN 3.4 g/dl (3.4-5.0); BILIRUBIN,TOTAL 1.2 mg/dl (0.2-1); CALCIUM 9.9 mg/dl (8.5-10); CREATININE 0.7 mg/dl (0.55-1.3); TOT PROT 6.1 g/dl (6.4-8.2)
[2021-02-18] MEDS: PANTOPRAZOLE SODIUM 40 MG VIAL IVPUSH SCH (10:21)
[2021-02-18] MEDS: ROSUVASTATIN CA 10 MG TABLET (FP) PO SCH (10:22)
[2021-02-18] MEDS: ATENOLOL 50 MG TABLET (FP) PO SCH (10:22)
[2021-02-18] MEDS: amLODIPine BESYLATE 2.5 MG TABLET (FP) PO SCH (10:22)
[2021-02-18] MEDS: levETIRAcetam 250 MG TABLET PO SCH ×2 (10:22→21:06)
[2021-02-18] MEDS: PYRIDOXINE HCL (B-6) 100 MG TABLET PO SCH (10:30)
[2021-02-18] MEDS ORDERED: PATIENT'S OWN MEDICATION (NON-FORMULARY) (Folic Acid [Folic Acid] 0.8 MG Tablet) PO SCH (10:30)
[2021-02-18 10:39] LABS: BASO % 0.6 % (0-2.0); EOS % 0.5 % (0-4.5); HEMATOCRIT 30.1 % (32.4-45.2); LYMPH % 12.4 % (8-40); MCH 29.2 pg (25.7-33.7); MEAN CELL VOLUME 88.5 fl (80-96); MEAN PLT VOLUME 8.3 fl (7.5-11.1); MONO % 11.2 % (3.8-10.2); NEUT % 75.3 % (42.8-82.8); PLATELET COUNT 149 10^3/uL (134-434); RDW 16.9 % (11.6-15.6); WHITE BLOOD COUNT 6.1 K/mm3 (4.0-10.0)
[2021-02-18] MEDS: CYANOCOBALAMIN 1,000 MCG TABLET (FP) PO SCH (11:32)
[2021-02-18] MEDS: CHOLECALCIFEROL (VIT D3) 1,000 UNIT (25 MCG) TABLET PO SCH (11:32)
[2021-02-18] MEDS: CEFTRIAXONE 1 GM in DEXTROSE 5%-WATER - 50 ML IVPB SCH (17:40)
[2021-02-18] MEDS ORDERED: DEXTROSE 5%-WATER - 50 ML IVPB ONE (17:50)
[2021-02-18] MEDS ORDERED: cefTRIAXone SODIUM 1 GM VIAL ONE (17:50)
[2021-02-18] MEDS: ATENOLOL 25 MG TABLET (FP) PO SCH (21:06)
[2021-02-18] MEDS: MAGNESIUM OXIDE 400 MG TABLET (FP) PO SCH (21:06)
[2021-02-19] MEDS: POTASSIUM CHLORIDE TABS 10 MEQ TABLET.ER (FP) PO SCH (06:25)
[2021-02-19] MEDS: FUROSEMIDE 20 MG TABLET (FP) PO SCH (06:25)
[2021-02-19] MEDS ORDERED: FUROSEMIDE 20 MG TABLET (FP) PO SCH (07:00)
[2021-02-19] MEDS ORDERED: PANTOPRAZOLE 40 MG TABLET PO SCH (07:00)
[2021-02-19] MEDS ORDERED: cefTRIAXone SODIUM 1 GM VIAL ONE (09:05)
[2021-02-19] MEDS ORDERED: PT OWN MED DRAWER 7, Y5N ONE (09:05)
[2021-02-19] MEDS ORDERED: DEXTROSE 5%-WATER - 50 ML IVPB ONE (09:05)
[2021-02-19] MEDS: CHOLECALCIFEROL (VIT D3) 1,000 UNIT (25 MCG) TABLET PO SCH (09:19)
[2021-02-19] MEDS: ATENOLOL 50 MG TABLET (FP) PO SCH (09:20)
[2021-02-19] MEDS: ROSUVASTATIN CA 10 MG TABLET (FP) PO SCH (09:20)
[2021-02-19] MEDS: levETIRAcetam 250 MG TABLET PO SCH ×2 (09:20→21:34)
[2021-02-19] MEDS: CYANOCOBALAMIN 1,000 MCG TABLET (FP) PO SCH (09:20)
[2021-02-19] MEDS: CEFTRIAXONE 1 GM in DEXTROSE 5%-WATER - 50 ML IVPB SCH (09:20)
[2021-02-19] MEDS: PANTOPRAZOLE SODIUM 40 MG VIAL IVPUSH SCH (09:21)
[2021-02-19] MEDS: PYRIDOXINE HCL (B-6) 100 MG TABLET PO SCH (09:21)
[2021-02-19] MEDS: amLODIPine BESYLATE 2.5 MG TABLET (FP) PO SCH (09:30)
[2021-02-19 09:54] LABS: BASO % 1.9 % (0-2.0); EOS % 2.8 % (0-4.5); HEMATOCRIT 32.9 % (32.4-45.2); HEMOGLOBIN 10.7 GM/dl (10.7-15.3); LYMPH % 18.1 % (8-40); MCH 29.1 pg (25.7-33.7); MCHC 32.5 g/dl (32.0-36.0); MEAN CELL VOLUME 89.8 fl (80-96); MEAN PLT VOLUME 8.6 fl (7.5-11.1); MONO % 9.8 % (3.8-10.2); NEUT % 67.4 % (42.8-82.8); PLATELET COUNT 196 10^3/uL (134-434); RBC 3.67 M/mm3 (3.60-5.2); WHITE BLOOD COUNT 5.8 K/mm3 (4.0-10.8)
[2021-02-19] MEDS: ENOXAPARIN NA (PORCINE) 40 MG/0.4 ML DISP.SYRIN SQ SCH (13:02)
[2021-02-19] MEDS: MAGNESIUM OXIDE 400 MG TABLET (FP) PO SCH (21:33)
[2021-02-19] MEDS: ATENOLOL 25 MG TABLET (FP) PO SCH (21:34)
[2021-02-19] MEDS ORDERED: amLODIPine BESYLATE 2.5 MG TABLET (FP) PO SCH (22:00)
[2021-02-20] MEDS: FUROSEMIDE 20 MG TABLET (FP) PO SCH (06:11)
[2021-02-20] MEDS: POTASSIUM CHLORIDE TABS 10 MEQ TABLET.ER (FP) PO SCH (06:11)
[2021-02-20] MEDS ORDERED: cefTRIAXone SODIUM 1 GM VIAL ONE (09:07)
[2021-02-20] MEDS ORDERED: DEXTROSE 5%-WATER - 50 ML IVPB ONE (09:08)
[2021-02-20] MEDS: levETIRAcetam 250 MG TABLET PO SCH (09:28)
[2021-02-20] MEDS: CEFTRIAXONE 1 GM in DEXTROSE 5%-WATER - 50 ML IVPB SCH (09:28)
[2021-02-20] MEDS: CYANOCOBALAMIN 1,000 MCG TABLET (FP) PO SCH (09:28)
[2021-02-20] MEDS: ROSUVASTATIN CA 10 MG TABLET (FP) PO SCH (09:28)
[2021-02-20] MEDS: PANTOPRAZOLE SODIUM 40 MG VIAL IVPUSH SCH (09:28)
[2021-02-20] MEDS: CHOLECALCIFEROL (VIT D3) 1,000 UNIT (25 MCG) TABLET PO SCH (09:28)
[2021-02-20] MEDS: ATENOLOL 50 MG TABLET (FP) PO SCH (09:28)
[2021-02-20] MEDS: ENOXAPARIN NA (PORCINE) 40 MG/0.4 ML DISP.SYRIN SQ SCH (09:33)
[2021-02-20] MEDS ORDERED: PYRIDOXINE HCL (B-6) 50 MG TABLET (FP) PO SCH (10:00)
[2021-02-20 13:05] VITALS: BP 123/85; PULSE 79; TEMP 98
[2021-02-20] MEDS ORDERED: ASPIRIN COATED 81 MG TABLET.EC PO SCH (22:00)
== END 2021-02-20 14:21 | disposition home or self-care (01) | DRG 689 ==
LOC: FER 13:08 → FM/S 16:16
PROVIDERS: ADMIT Internal Medicine; ATTEND Nurse Practitioner Acute Care
DX: N39.0 Urinary tract infection, site not specified (principal); S72.111A Displaced fracture of greater trochanter of right femur, initial encounter for closed fracture; I48.20 Chronic atrial fibrillation, unspecified; I31.3 Pericardial effusion (noninflammatory); E87.6 Hypokalemia; E83.42 Hypomagnesemia; R63.0 Anorexia; Z85.51 Personal history of malignant neoplasm of bladder; H35.30 Unspecified macular degeneration; K21.9 Gastro-esophageal reflux disease without esophagitis; E78.5 Hyperlipidemia, unspecified; I10 Essential (primary) hypertension; B96.20 Unspecified Escherichia coli [E. coli] as the cause of diseases classified elsewhere; T14.8XXA Other injury of unspecified body region, initial encounter; X58.XXXA Exposure to other specified factors, initial encounter; Y93.9 Activity, unspecified; Y92.89 Other specified places as the place of occurrence of the external cause; Y99.9 Unspecified external cause status
CPT/HCPCS: 36415; 71046-TC-FY; 73523-TC-FY; 74177-TC; 80053; 80177; 81003; 81015; 82248; 82550; 82728; 83540; 83550; 83690; 83735; 84484; 85025; 85610; 85730; 87040; 87086; 87186; 87804; 93005; 97116-GP; 97162-GP; 99285-25; C9803; J0131; Q9967; U0003; U0005

== ENCOUNTER 2022-01-28 07:54 | Inpatient (IN) | payer OTHER, BC ==
[2022-01-28 09:17] VITALS: BMI 19.1
[2022-01-28] MEDS ORDERED: LIDOCAINE 5% TOPICAL PATCH TP ONE (09:24)
[2022-01-28] MEDS ORDERED: LIDOCAINE HCL 5% TOP OINTMENT 50 GM TUBE TP ONE (09:25)
[2022-01-28] MEDS ORDERED: ACETAMINOPHEN 325 MG TABLET (FP) PO ONE (09:25)
[2022-01-28 10:00] LABS: BASO % 0.4 % (0-2.0); EOS % 0.5 % (0-4.5); HEMATOCRIT 32.6 % (32.4-45.2); HEMOGLOBIN 10.7 GM/dL (10.7-15.3); LYMPH % 10.4 % (8-40); MCH 28.6 pg (25.7-33.7); MCHC 32.7 g/dl (32.0-36.0); MEAN CELL VOLUME 87.5 fl (80-96); MEAN PLT VOLUME 7.3 fl (7.5-11.1); MONO % 8.4 % (3.8-10.2); NEUT % 80.3 % (42.8-82.8); PLATELET COUNT 207 10^3/uL (134-434); RBC 3.73 M/mm3 (3.60-5.2); RDW 16.9 % (11.6-15.6); WHITE BLOOD COUNT 5.3 K/mm3 (4.0-10.0)
[2022-01-28] MEDS ORDERED: ACETAMINOPHEN 325 MG TABLET (FP) ONE (10:05)
[2022-01-28 10:28] LABS: CALCIUM 9.8 mg/dL (8.5-10.1)
[2022-01-28 10:29] LABS: ALBUMIN 3.4 g/dl (3.4-5.0); BLOOD UREA NITROGEN 17.6 mg/dL (7-18)
[2022-01-28 10:32] LABS: CREATININE 0.6 mg/dL (0.55-1.3)
[2022-01-28 10:34] LABS: BILIRUBIN,TOTAL 1.2 mg/dL (0.2-1); TOT PROT 6.5 g/dl (6.4-8.2)
[2022-01-28 10:56] LABS: URINE APPEARANCE CLEAR; URINE BILIRUBIN NEGATIVE (NEGATIVE); URINE COLOR YELLOW; URINE GLUCOSE (UA) NEGATIVE (NEGATIVE); URINE KETONE NEGATIVE (NEGATIVE); URINE LEUK ESTERASE NEGATIVE (NEGATIVE); URINE NITRITE NEGATIVE (NEGATIVE); URINE PROTEIN NEGATIVE (NEGATIVE)
[2022-01-28] MEDS ORDERED: oxyCODONE HCL 5 MG TABLET PO ONE (12:10)
[2022-01-28] MEDS ORDERED: oxyCODONE HCL 5 MG TABLET ONE ×3 (13:15→20:48)
[2022-01-28] MEDS ORDERED: morphine CARPU-JECT 4 MG/1 ML DISP.SYRIN IVPUSH ONE (16:08)
[2022-01-28] MEDS ORDERED: morphine SULFATE 4 MG/ML VIAL ONE (17:56)
[2022-01-28] MEDS: LACTATED RINGERS SOLUTION 1,000 ML IV SCH (20:01)
[2022-01-28] MEDS: oxyCODONE HCL 5 MG TABLET PO PRN (20:53)
[2022-01-28] MEDS ORDERED: LIDOCAINE PATCH REMOVAL MC ONE (22:00)
[2022-01-29] MEDS ORDERED: oxyCODONE HCL 5 MG TABLET ONE (03:50)
[2022-01-29] MEDS: oxyCODONE HCL 5 MG TABLET PO PRN ×3 (04:00→18:36)
[2022-01-29] MEDS: POTASSIUM CHLORIDE TABS 10 MEQ TABLET.ER (FP) PO SCH (07:12)
[2022-01-29] MEDS: FUROSEMIDE 20 MG TABLET (FP) PO SCH (07:12)
[2022-01-29] MEDS: amLODIPine BESYLATE 2.5 MG TABLET (FP) PO SCH (10:00)
[2022-01-29] MEDS: GABAPENTIN 100 MG CAPSULE PO SCH ×2 (10:00→21:35)
[2022-01-29] MEDS: ATENOLOL 50 MG TABLET (FP) PO SCH (10:34)
[2022-01-29 10:57] LABS: BASO % 0.2 % (0-2.0); EOS % 0.4 % (0-4.5); HEMATOCRIT 34.3 % (32.4-45.2); HEMOGLOBIN 11.1 GM/dL (10.7-15.3); LYMPH % 7.4 % (8-40); MCHC 32.5 g/dl (32.0-36.0); MEAN CELL VOLUME 86.3 fl (80-96); MEAN PLT VOLUME 7.6 fl (7.5-11.1); MONO % 5.2 % (3.8-10.2); NEUT % 86.8 % (42.8-82.8); PLATELET COUNT 236 10^3/uL (134-434); RBC 3.97 M/mm3 (3.60-5.2); RDW 16.4 % (11.6-15.6); WHITE BLOOD COUNT 7.4 K/mm3 (4.0-10.0)
[2022-01-29 11:35] LABS: BLOOD UREA NITROGEN 14.5 mg/dL (7-18)
[2022-01-29 11:38] LABS: CALCIUM 9.6 mg/dL (8.5-10.1); PHOSPHOROUS 2.8 mg/dL (2.5-4.9)
[2022-01-29 11:39] LABS: CREATININE 0.5 mg/dL (0.55-1.3)
[2022-01-29] MEDS ORDERED: REMDESIVIR 200 MG in SODIUM CHLORIDE 250 ML IVPB ONE (17:15)
[2022-01-29] MEDS: LACTATED RINGERS SOLUTION 1,000 ML IV SCH (20:46)
[2022-01-29] MEDS: HEPARIN NA (PORCINE) 5,000 UNITS/ML 1ML VIAL SQ SCH (21:35)
[2022-01-29] MEDS: ROSUVASTATIN CA 10 MG TABLET PO SCH (21:35)
[2022-01-30] MEDS: POTASSIUM CHLORIDE TABS 10 MEQ TABLET.ER (FP) PO SCH (06:22)
[2022-01-30] MEDS: FUROSEMIDE 20 MG TABLET (FP) PO SCH (06:22)
[2022-01-30] MEDS: oxyCODONE HCL 5 MG TABLET PO PRN ×2 (10:01→20:10)
[2022-01-30] MEDS: GABAPENTIN 100 MG CAPSULE PO SCH ×2 (10:01→22:26)
[2022-01-30] MEDS: LACTATED RINGERS SOLUTION 1,000 ML IV SCH (10:01)
[2022-01-30] MEDS: amLODIPine BESYLATE 2.5 MG TABLET (FP) PO SCH (10:01)
[2022-01-30] MEDS: ATENOLOL 50 MG TABLET (FP) PO SCH (10:02)
[2022-01-30] MEDS: HEPARIN NA (PORCINE) 5,000 UNITS/ML 1ML VIAL SQ SCH ×2 (10:02→22:27)
[2022-01-30 10:14] LABS: BASO % 0.4 % (0-2.0); EOS % 1.4 % (0-4.5); HEMATOCRIT 35.3 % (32.4-45.2); HEMOGLOBIN 11.6 GM/dL (10.7-15.3); LYMPH % 10.9 % (8-40); MCH 28.3 pg (25.7-33.7); MCHC 32.8 g/dl (32.0-36.0); MEAN CELL VOLUME 86.2 fl (80-96); MEAN PLT VOLUME 7.4 fl (7.5-11.1); MONO % 7.4 % (3.8-10.2); NEUT % 79.9 % (42.8-82.8); PLATELET COUNT 265 10^3/uL (134-434); RBC 4.09 M/mm3 (3.60-5.2); RDW 16.8 % (11.6-15.6); WHITE BLOOD COUNT 7.4 K/mm3 (4.0-10.0)
[2022-01-30 10:40] LABS: BLOOD UREA NITROGEN 15.6 mg/dL (7-18); CALCIUM 9.7 mg/dL (8.5-10.1)
[2022-01-30 10:42] LABS: ALBUMIN 3.3 g/dl (3.4-5.0)
[2022-01-30 10:44] LABS: CREATININE 0.6 mg/dL (0.55-1.3)
[2022-01-30 10:46] LABS: BILIRUBIN,TOTAL 0.8 mg/dL (0.2-1); TOT PROT 6.5 g/dl (6.4-8.2)
[2022-01-30] MEDS: REMDESIVIR 100 MG in SODIUM CHLORIDE 250 ML IVPB SCH (20:07)
[2022-01-30] MEDS: ROSUVASTATIN CA 10 MG TABLET PO SCH (22:28)
[2022-01-31] MEDS: FUROSEMIDE 20 MG TABLET (FP) PO SCH (06:36)
[2022-01-31] MEDS: POTASSIUM CHLORIDE TABS 10 MEQ TABLET.ER (FP) PO SCH (06:36)
[2022-01-31] MEDS: LACTATED RINGERS SOLUTION 1,000 ML IV SCH (11:05)
[2022-01-31] MEDS: HEPARIN NA (PORCINE) 5,000 UNITS/ML 1ML VIAL SQ SCH ×2 (11:06→21:29)
[2022-01-31] MEDS: ATENOLOL 50 MG TABLET (FP) PO SCH (11:06)
[2022-01-31] MEDS: amLODIPine BESYLATE 2.5 MG TABLET (FP) PO SCH (11:06)
[2022-01-31] MEDS: GABAPENTIN 100 MG CAPSULE PO SCH ×2 (11:06→21:30)
[2022-01-31] MEDS ORDERED: SENNOSIDES 8.6MG TABLET (FP) PO PRN (14:27)
[2022-01-31] MEDS ORDERED: POLYETHYLENE GLYCOL (HEALTHYLAX) 3350 17 GM PACKET PO ONE (14:30)
[2022-01-31] MEDS: DOCUSATE SODIUM 100 MG CAPSULE (FP) PO SCH ×2 (15:26→21:30)
[2022-01-31] MEDS: oxyCODONE HCL 5 MG TABLET PO PRN (18:46)
[2022-01-31] MEDS: ROSUVASTATIN CA 10 MG TABLET PO SCH (21:30)
[2022-01-31] MEDS: POLYETHYLENE GLYCOL (HEALTHYLAX) 3350 17 GM PACKET PO SCH (21:31)
[2022-01-31] MEDS: REMDESIVIR 100 MG in SODIUM CHLORIDE 250 ML IVPB SCH (21:31)
[2022-02-01] MEDS: FUROSEMIDE 20 MG TABLET (FP) PO SCH (06:08)
[2022-02-01] MEDS: POTASSIUM CHLORIDE TABS 10 MEQ TABLET.ER (FP) PO SCH (06:09)
[2022-02-01] MEDS: DOCUSATE SODIUM 100 MG CAPSULE (FP) PO SCH ×3 (06:09→21:49)
[2022-02-01 10:02] LABS: BASO % 0.4 % (0-2.0); EOS % 0.6 % (0-4.5); HEMATOCRIT 35.2 % (32.4-45.2); HEMOGLOBIN 11.3 GM/dL (10.7-15.3); MCH 27.7 pg (25.7-33.7); MEAN CELL VOLUME 86.4 fl (80-96); MEAN PLT VOLUME 7.9 fl (7.5-11.1); MONO % 7.5 % (3.8-10.2); NEUT % 80.5 % (42.8-82.8); PLATELET COUNT 233 10^3/uL (134-434); RBC 4.07 M/mm3 (3.60-5.2); RDW 16.5 % (11.6-15.6); WHITE BLOOD COUNT 7.8 K/mm3 (4.0-10.0)
[2022-02-01 10:26] LABS: CALCIUM 9.8 mg/dL (8.5-10.1)
[2022-02-01 10:27] LABS: ALBUMIN 3.1 g/dl (3.4-5.0); BLOOD UREA NITROGEN 17.2 mg/dL (7-18); MAGNESIUM 1.8 mg/dL (1.8-2.4)
[2022-02-01 10:29] LABS: CREATININE 0.6 mg/dL (0.55-1.3)
[2022-02-01 10:31] LABS: TOT PROT 6.2 g/dl (6.4-8.2)
[2022-02-01] MEDS: ATENOLOL 50 MG TABLET (FP) PO SCH (11:16)
[2022-02-01] MEDS: HEPARIN NA (PORCINE) 5,000 UNITS/ML 1ML VIAL SQ SCH ×2 (11:16→21:49)
[2022-02-01] MEDS: POLYETHYLENE GLYCOL (HEALTHYLAX) 3350 17 GM PACKET PO SCH ×2 (11:16→21:49)
[2022-02-01] MEDS: amLODIPine BESYLATE 2.5 MG TABLET (FP) PO SCH (11:16)
[2022-02-01] MEDS: GABAPENTIN 100 MG CAPSULE PO SCH ×2 (11:16→21:49)
[2022-02-01] MEDS: ROSUVASTATIN CA 10 MG TABLET PO SCH (21:49)
[2022-02-01] MEDS: ACETAMINOPHEN 325 MG TABLET (FP) PO PRN (22:07)
[2022-02-02] MEDS: FUROSEMIDE 20 MG TABLET (FP) PO SCH (06:14)
[2022-02-02] MEDS: DOCUSATE SODIUM 100 MG CAPSULE (FP) PO SCH ×3 (06:14→22:31)
[2022-02-02 09:31] LABS: BASO % 0.5 % (0-2.0); EOS % 0.6 % (0-4.5); HEMATOCRIT 33.7 % (32.4-45.2); HEMOGLOBIN 11.1 GM/dL (10.7-15.3); LYMPH % 10.4 % (8-40); MCH 28.6 pg (25.7-33.7); MEAN CELL VOLUME 86.5 fl (80-96); MEAN PLT VOLUME 7.8 fl (7.5-11.1); MONO % 8.7 % (3.8-10.2); NEUT % 79.8 % (42.8-82.8); PLATELET COUNT 206 10^3/uL (134-434); RDW 16.7 % (11.6-15.6)
[2022-02-02 09:56] LABS: ALBUMIN 2.9 g/dl (3.4-5.0)
[2022-02-02 09:57] LABS: BLOOD UREA NITROGEN 21.8 mg/dL (7-18); MAGNESIUM 1.9 mg/dL (1.8-2.4)
[2022-02-02 09:59] LABS: CREATININE 0.7 mg/dL (0.55-1.3)
[2022-02-02 10:02] LABS: TOT PROT 5.8 g/dl (6.4-8.2)
[2022-02-02] MEDS: amLODIPine BESYLATE 2.5 MG TABLET (FP) PO SCH (10:13)
[2022-02-02] MEDS: POLYETHYLENE GLYCOL (HEALTHYLAX) 3350 17 GM PACKET PO SCH ×2 (10:13→22:31)
[2022-02-02] MEDS: POTASSIUM CHLORIDE TABS 10 MEQ TABLET.ER (FP) PO SCH (10:13)
[2022-02-02] MEDS: HEPARIN NA (PORCINE) 5,000 UNITS/ML 1ML VIAL SQ SCH ×2 (10:13→22:31)
[2022-02-02] MEDS: GABAPENTIN 100 MG CAPSULE PO SCH ×2 (10:13→22:32)
[2022-02-02] MEDS: ATENOLOL 50 MG TABLET (FP) PO SCH (10:14)
[2022-02-02 18:53] VITALS: RESP 18
[2022-02-02] MEDS: ROSUVASTATIN CA 10 MG TABLET PO SCH (22:31)
[2022-02-03] MEDS: DOCUSATE SODIUM 100 MG CAPSULE (FP) PO SCH ×3 (06:17→22:51)
[2022-02-03] MEDS: POTASSIUM CHLORIDE TABS 10 MEQ TABLET.ER (FP) PO SCH (06:17)
[2022-02-03] MEDS: FUROSEMIDE 20 MG TABLET (FP) PO SCH (06:17)
[2022-02-03 10:46] LABS: BASO % 0.5 % (0-2.0); EOS % 1.5 % (0-4.5); HEMATOCRIT 35.7 % (32.4-45.2); HEMOGLOBIN 11.6 GM/dL (10.7-15.3); LYMPH % 13.7 % (8-40); MCH 27.7 pg (25.7-33.7); MCHC 32.4 g/dl (32.0-36.0); MEAN CELL VOLUME 85.6 fl (80-96); MEAN PLT VOLUME 7.9 fl (7.5-11.1); MONO % 8.7 % (3.8-10.2); NEUT % 75.6 % (42.8-82.8); PLATELET COUNT 259 10^3/uL (134-434); RBC 4.17 M/mm3 (3.60-5.2); RDW 16.8 % (11.6-15.6); WHITE BLOOD COUNT 6.4 K/mm3 (4.0-10.0)
[2022-02-03 11:09] LABS: CALCIUM 9.7 mg/dL (8.5-10.1)
[2022-02-03 11:10] LABS: BLOOD UREA NITROGEN 22.4 mg/dL (7-18)
[2022-02-03] MEDS: HEPARIN NA (PORCINE) 5,000 UNITS/ML 1ML VIAL SQ SCH ×2 (11:12→22:50)
[2022-02-03] MEDS: POLYETHYLENE GLYCOL (HEALTHYLAX) 3350 17 GM PACKET PO SCH ×2 (11:12→22:50)
[2022-02-03 11:13] LABS: CREATININE 0.8 mg/dL (0.55-1.3)
[2022-02-03] MEDS: amLODIPine BESYLATE 2.5 MG TABLET (FP) PO SCH (11:13)
[2022-02-03] MEDS: GABAPENTIN 100 MG CAPSULE PO SCH ×2 (11:13→22:50)
[2022-02-03] MEDS: ATENOLOL 50 MG TABLET (FP) PO SCH (11:13)
[2022-02-03 11:14] LABS: BILIRUBIN,TOTAL 0.7 mg/dL (0.2-1); TOT PROT 6.1 g/dl (6.4-8.2)
[2022-02-03] MEDS: ROSUVASTATIN CA 10 MG TABLET PO SCH (22:51)
[2022-02-04] MEDS: POTASSIUM CHLORIDE TABS 10 MEQ TABLET.ER (FP) PO SCH (06:06)
[2022-02-04] MEDS: FUROSEMIDE 20 MG TABLET (FP) PO SCH (06:07)
[2022-02-04] MEDS: oxyCODONE HCL 5 MG TABLET PO PRN (06:07)
[2022-02-04] MEDS: DOCUSATE SODIUM 100 MG CAPSULE (FP) PO SCH ×3 (06:07→21:45)
[2022-02-04 09:14] LABS: BASO % 0.6 % (0-2.0); EOS % 2.4 % (0-4.5); HEMATOCRIT 32.7 % (32.4-45.2); HEMOGLOBIN 10.6 GM/dL (10.7-15.3); LYMPH % 17.6 % (8-40); MCH 27.9 pg (25.7-33.7); MCHC 32.5 g/dl (32.0-36.0); MEAN CELL VOLUME 85.8 fl (80-96); MONO % 10.5 % (3.8-10.2); NEUT % 68.9 % (42.8-82.8); PLATELET COUNT 249 10^3/uL (134-434); RBC 3.81 M/mm3 (3.60-5.2); RDW 16.5 % (11.6-15.6)
[2022-02-04 09:30] LABS: CALCIUM 9.5 mg/dL (8.5-10.1)
[2022-02-04 09:31] LABS: ALBUMIN 2.6 g/dl (3.4-5.0); BLOOD UREA NITROGEN 24.5 mg/dL (7-18); MAGNESIUM 2.2 mg/dL (1.8-2.4)
[2022-02-04 09:34] LABS: CREATININE 0.7 mg/dL (0.55-1.3)
[2022-02-04 09:35] LABS: BILIRUBIN,TOTAL 0.6 mg/dL (0.2-1); TOT PROT 5.6 g/dl (6.4-8.2)
[2022-02-04] MEDS: ATENOLOL 50 MG TABLET (FP) PO SCH (09:36)
[2022-02-04] MEDS: amLODIPine BESYLATE 2.5 MG TABLET (FP) PO SCH (09:36)
[2022-02-04] MEDS: GABAPENTIN 100 MG CAPSULE PO SCH ×2 (09:36→21:44)
[2022-02-04] MEDS: HEPARIN NA (PORCINE) 5,000 UNITS/ML 1ML VIAL SQ SCH ×2 (09:36→21:45)
[2022-02-04] MEDS: POLYETHYLENE GLYCOL (HEALTHYLAX) 3350 17 GM PACKET PO SCH ×2 (09:36→21:45)
[2022-02-04] MEDS: ROSUVASTATIN CA 10 MG TABLET PO SCH (21:44)
[2022-02-05] MEDS: FUROSEMIDE 20 MG TABLET (FP) PO SCH (06:18)
[2022-02-05] MEDS: DOCUSATE SODIUM 100 MG CAPSULE (FP) PO SCH ×3 (06:18→22:44)
[2022-02-05] MEDS: POTASSIUM CHLORIDE TABS 10 MEQ TABLET.ER (FP) PO SCH (06:18)
[2022-02-05] MEDS: GABAPENTIN 100 MG CAPSULE PO SCH ×2 (09:18→23:08)
[2022-02-05] MEDS: HEPARIN NA (PORCINE) 5,000 UNITS/ML 1ML VIAL SQ SCH ×2 (09:18→23:08)
[2022-02-05] MEDS: ATENOLOL 50 MG TABLET (FP) PO SCH (09:18)
[2022-02-05] MEDS: POLYETHYLENE GLYCOL (HEALTHYLAX) 3350 17 GM PACKET PO SCH ×3 (09:19→22:44)
[2022-02-05] MEDS: amLODIPine BESYLATE 2.5 MG TABLET (FP) PO SCH (09:23)
[2022-02-05 10:06] LABS: BASO % 0.9 % (0-2.0); EOS % 2.4 % (0-4.5); HEMATOCRIT 36.2 % (32.4-45.2); HEMOGLOBIN 11.7 GM/dL (10.7-15.3); LYMPH % 14.7 % (8-40); MCH 28.1 pg (25.7-33.7); MCHC 32.4 g/dl (32.0-36.0); MEAN CELL VOLUME 86.6 fl (80-96); MONO % 9.1 % (3.8-10.2); NEUT % 72.9 % (42.8-82.8); PLATELET COUNT 266 10^3/uL (134-434); RBC 4.18 M/mm3 (3.60-5.2); RDW 16.5 % (11.6-15.6); WHITE BLOOD COUNT 5.1 K/mm3 (4.0-10.0)
[2022-02-05 10:20] LABS: BLOOD UREA NITROGEN 24.8 mg/dL (7-18); CALCIUM 9.9 mg/dL (8.5-10.1)
[2022-02-05 10:21] LABS: ALBUMIN 2.9 g/dl (3.4-5.0); MAGNESIUM 2.3 mg/dL (1.8-2.4)
[2022-02-05 10:22] LABS: CREATININE 0.7 mg/dL (0.55-1.3)
[2022-02-05 10:24] LABS: BILIRUBIN,TOTAL 0.6 mg/dL (0.2-1); TOT PROT 6.3 g/dl (6.4-8.2)
[2022-02-05] MEDS: ACETAMINOPHEN 325 MG TABLET (FP) PO PRN (19:09)
[2022-02-05] MEDS: ROSUVASTATIN CA 10 MG TABLET PO SCH (23:08)
[2022-02-05] MEDS: oxyCODONE HCL 5 MG TABLET PO PRN (23:08)
[2022-02-06] MEDS: FUROSEMIDE 20 MG TABLET (FP) PO SCH (06:23)
[2022-02-06] MEDS: DOCUSATE SODIUM 100 MG CAPSULE (FP) PO SCH (06:23)
[2022-02-06] MEDS: POTASSIUM CHLORIDE TABS 10 MEQ TABLET.ER (FP) PO SCH (06:24)
[2022-02-06] MEDS: amLODIPine BESYLATE 2.5 MG TABLET (FP) PO SCH (09:06)
[2022-02-06] MEDS: GABAPENTIN 100 MG CAPSULE PO SCH (09:06)
[2022-02-06] MEDS: HEPARIN NA (PORCINE) 5,000 UNITS/ML 1ML VIAL SQ SCH (09:06)
[2022-02-06] MEDS: ATENOLOL 50 MG TABLET (FP) PO SCH (09:06)
[2022-02-06] MEDS: POLYETHYLENE GLYCOL (HEALTHYLAX) 3350 17 GM PACKET PO SCH (09:06)
[2022-02-06 11:39] VITALS: BP 140/87; PULSE 87; TEMP 97.8
[2022-02-06 11:47] LABS: BASO % 0.5 % (0-2.0); EOS % 1.9 % (0-4.5); HEMATOCRIT 33.8 % (32.4-45.2); HEMOGLOBIN 10.9 GM/dL (10.7-15.3); LYMPH % 12.1 % (8-40); MCH 28.2 pg (25.7-33.7); MCHC 32.3 g/dl (32.0-36.0); MEAN CELL VOLUME 87.3 fl (80-96); MEAN PLT VOLUME 7.8 fl (7.5-11.1); MONO % 8.9 % (3.8-10.2); NEUT % 76.6 % (42.8-82.8); PLATELET COUNT 239 10^3/uL (134-434); RBC 3.87 M/mm3 (3.60-5.2); RDW 16.8 % (11.6-15.6); WHITE BLOOD COUNT 5.9 K/mm3 (4.0-10.0)
[2022-02-06 12:18] LABS: BLOOD UREA NITROGEN 29.2 mg/dL (7-18)
[2022-02-06 12:19] LABS: ALBUMIN 2.9 g/dl (3.4-5.0); MAGNESIUM 2.5 mg/dL (1.8-2.4)
[2022-02-06 12:22] LABS: CREATININE 0.6 mg/dL (0.55-1.3)
[2022-02-06 12:23] LABS: BILIRUBIN,TOTAL 0.5 mg/dL (0.2-1); TOT PROT 6.2 g/dl (6.4-8.2)
== END 2022-02-06 14:27 | DRG 551 ==
LOC: JER 07:54 → JERBED 16:34 → J5S 01-29 04:31 → J8W 02-04 00:02 → J6S 02-04 15:14
PROVIDERS: ADMIT Internal Medicine; ATTEND Nurse Practitioner Acute Care
PROC: XW033E5 Introduction of Remdesivir Anti-infective into Peripheral Vein, Percutaneous Approach, New Technology Group 5 (ICD-10-PCS; principal; 2022-01-29)
DX: S32.10XA Unspecified fracture of sacrum, initial encounter for closed fracture (principal); U07.1 COVID-19; I10 Essential (primary) hypertension; E78.5 Hyperlipidemia, unspecified; M25.851 Other specified joint disorders, right hip; I48.91 Unspecified atrial fibrillation; Z85.51 Personal history of malignant neoplasm of bladder; Z85.41 Personal history of malignant neoplasm of cervix uteri; Z96.643 Presence of artificial hip joint, bilateral; Z86.73 Personal history of transient ischemic attack (TIA), and cerebral infarction without residual deficits; X58.XXXA Exposure to other specified factors, initial encounter; Y93.9 Activity, unspecified; Y92.098 Other place in other non-institutional residence as the place of occurrence of the external cause
CPT/HCPCS: 0241U-QW; 36415; 71045-TC-FY; 72131-TC; 72170-TC-FY; 72192-TC; 72220-TC-FY; 80048; 80053; 81003; 83735; 84100; 85025; 85379; 86140; 87086; 87186; 93005; 93010; 93971-TC; 97116-GP; 97162-GP; 99285-25; C9399; C9803-CS; J1644; U0003; U0005

== ENCOUNTER 2022-06-07 04:27 | Inpatient (IN) | payer OTHER, BC ==
[2022-06-07 04:41] VITALS: BMI 18.5
[2022-06-07 05:58] LABS: BASO % 0.6 % (0-2.0); EOS % 1.3 % (0-4.5); HEMATOCRIT 33.9 % (32.4-45.2); HEMOGLOBIN 11.3 GM/dL (10.7-15.3); LYMPH % 14.2 % (8-40); MCH 30.3 pg (25.7-33.7); MCHC 33.3 g/dl (32.0-36.0); MEAN CELL VOLUME 91.1 fl (80-96); MONO % 10.1 % (3.8-10.2); NEUT % 73.8 % (42.8-82.8); PLATELET COUNT 199 10^3/uL (134-434); RBC 3.72 M/mm3 (3.60-5.2); RDW 16.4 % (11.6-15.6); WHITE BLOOD COUNT 6.8 K/mm3 (4.0-10.0)
[2022-06-07 05:59] LABS: VENOUS BASE EXCESS 6.3 mmol/L (-2-2); VENOUS O2 SATURATION 72.8 % (70-80); VENOUS PCO2 52.2 mmHg (38-52); VENOUS PH 7.411 (7.310-7.410)
[2022-06-07 06:15] LABS: INR 1.15 (0.83-1.09); PROTHROMBIN TIME (PATIENT) 13.3 SEC (9.7-13.0)
[2022-06-07 06:19] LABS: BLOOD UREA NITROGEN 21.2 mg/dL (7-18); CALCIUM 10.1 mg/dL (8.5-10.1)
[2022-06-07 06:20] LABS: ALBUMIN 3.3 g/dl (3.4-5.0)
[2022-06-07 06:23] LABS: CREATININE 0.7 mg/dL (0.55-1.3)
[2022-06-07 06:24] LABS: TOT PROT 6.6 g/dl (6.4-8.2)
[2022-06-07 08:03] LABS: EPI CELLS 20 /uL (0-25.1); HYALINE CASTS 2 /uL (0-3.1); URINE APPEARANCE CLEAR; URINE BACTERIA 26 /uL (0-1359); URINE BILIRUBIN NEGATIVE (NEGATIVE); URINE COLOR YELLOW; URINE GLUCOSE (UA) NEGATIVE (NEGATIVE); URINE KETONE NEGATIVE (NEGATIVE); URINE LEUK ESTERASE 1+ (NEGATIVE); URINE NITRITE NEGATIVE (NEGATIVE); URINE PROTEIN 2+ (NEGATIVE); URINE RBC 23 /uL (0-23.9); URINE WBC 55 /uL (0-25.8)
[2022-06-07 08:44] LABS: METHADONE, UR NEGATIVE (NEGATIVE); OPIATES, URI NEGATIVE (NEGATIVE); PHENCYCLIDINE,URINE NEGATIVE (NEGATIVE); URINE AMPHETAMINES NEGATIVE (NEGATIVE); URINE BARBITURATES NEGATIVE (NEGATIVE); URINE BENZODIAZEPINES NEGATIVE (NEGATIVE)
[2022-06-07 08:54] LABS: COCAINE, UR NEGATIVE (NEGATIVE)
[2022-06-07] MEDS ORDERED: CEFTRIAXONE 1,000 MG in DEXTROSE 5%-WATER - 50 ML IVPB ONE (08:56)
[2022-06-07] MEDS ORDERED: cefTRIAXone SODIUM 1 GM VIAL ONE (09:02)
[2022-06-07 09:07] LABS: URINE CRYSTALS NEGATIVE /hpf
[2022-06-07 11:27] LABS: MAGNESIUM 2.1 mg/dL (1.8-2.4)
[2022-06-07 11:31] LABS: PHOSPHOROUS 2.9 mg/dL (2.5-4.9)
[2022-06-07 11:35] LABS: N-TERMINAL BNP 1836.6 pg/ml (5-450)
[2022-06-07] MEDS ORDERED: POTASSIUM CHLORIDE ORAL LIQUID 20 MEQ/15 ML PO ONE (14:45)
[2022-06-07] MEDS ORDERED: SODIUM CHLORIDE 0.45%/POT 20 MEQ/1,000 ML INFUS.BAG IV SCH (14:45)
[2022-06-07] MEDS ORDERED: ACETAMINOPHEN 325 MG TABLET (FP) PO PRN (22:46)
[2022-06-08 09:19] LABS: ALBUMIN 3.6 g/dl (3.4-5.0); BILIRUBIN,TOTAL 1.5 mg/dl (0.2-1); CALCIUM 10.1 mg/dl (8.5-10); CREATININE 0.6 mg/dl (0.55-1.3); TOT PROT 6.6 g/dl (6.4-8.2)
[2022-06-08] MEDS ORDERED: PATIENT'S OWN MEDICATION (NON-FORMULARY) (Ferrous Sulfate [Ferrous Sulfate] 325 MG Tablet) PO SCH (10:00)
[2022-06-08] MEDS ORDERED: CEFTRIAXONE 1 GM in DEXTROSE 5%-WATER - 50 ML IVPB SCH (10:00)
[2022-06-08] MEDS ORDERED: CHOLECALCIFEROL 25 MCG PO SCH (10:00)
[2022-06-08] MEDS: LIDOCAINE 5% TOPICAL PATCH TP SCH (10:44)
[2022-06-08] MEDS: POLYETHYLENE GLYCOL (HEALTHYLAX) 3350 17 GM PACKET PO SCH ×2 (10:44→21:18)
[2022-06-08] MEDS: ROSUVASTATIN CA 10 MG TABLET PO SCH (10:45)
[2022-06-08] MEDS: ENOXAPARIN NA (PORCINE) 40 MG/0.4 ML DISP.SYRIN SQ SCH ×2 (10:45→18:24)
[2022-06-08] MEDS: ASCORBIC ACID 500 MG TABLET (FP) PO SCH (10:46)
[2022-06-08] MEDS: amLODIPine BESYLATE 2.5 MG TABLET (FP) PO SCH (10:46)
[2022-06-08] MEDS: GABAPENTIN 100 MG CAPSULE PO SCH ×2 (10:46→21:18)
[2022-06-08] MEDS: ATENOLOL 50 MG TABLET (FP) PO SCH (10:46)
[2022-06-08 11:37] LABS: HEMATOCRIT 33.2 % (32.4-45.2); HEMOGLOBIN 11.3 G/dL (10.7-15.3); MCH 31.3 pg (25.7-33.7); MCHC 33.9 g/dl (32.0-36.0); MEAN CELL VOLUME 92.1 fl (80-96); MEAN PLT VOLUME 8.1 fl (7.5-11.1); PLATELET COUNT 190.7 10^3/uL (134-434); RDW 15.4 % (11.6-15.6); WHITE BLOOD COUNT 7.4 10^3/uL (4.0-10.8)
[2022-06-08] MEDS ORDERED: POTASSIUM CHLORIDE TABS 20 MEQ TABLET.ER (FP) PO ONE (13:05)
[2022-06-08] MEDS ORDERED: SODIUM CHLORIDE 1,000 ML IV SCH (13:15)
[2022-06-08] MEDS: DOCUSATE SODIUM 100 MG CAPSULE (FP) PO SCH ×2 (13:51→21:18)
[2022-06-08] MEDS: FERROUS SO4 325 MG TABLET (FP) PO SCH (15:45)
[2022-06-08] MEDS ORDERED: LIDOCAINE PATCH REMOVAL MC SCH (22:00)
[2022-06-09] MEDS: DOCUSATE SODIUM 100 MG CAPSULE (FP) PO SCH (06:32)
[2022-06-09 09:06] LABS: ALBUMIN 3.5 g/dl (3.4-5.0); BILIRUBIN,TOTAL 0.9 mg/dl (0.2-1); CALCIUM 10.2 mg/dl (8.5-10); CREATININE 0.8 mg/dl (0.55-1.3); TOT PROT 6.5 g/dl (6.4-8.2)
[2022-06-09] MEDS: FERROUS SO4 325 MG TABLET (FP) PO SCH (09:47)
[2022-06-09] MEDS: ENOXAPARIN NA (PORCINE) 40 MG/0.4 ML DISP.SYRIN SQ SCH (09:47)
[2022-06-09] MEDS: ASCORBIC ACID 500 MG TABLET (FP) PO SCH (09:47)
[2022-06-09] MEDS: amLODIPine BESYLATE 2.5 MG TABLET (FP) PO SCH (09:47)
[2022-06-09] MEDS: ROSUVASTATIN CA 10 MG TABLET PO SCH (09:47)
[2022-06-09] MEDS: LIDOCAINE 5% TOPICAL PATCH TP SCH ×2 (09:48→11:33)
[2022-06-09] MEDS: GABAPENTIN 100 MG CAPSULE PO SCH (09:48)
[2022-06-09] MEDS: POLYETHYLENE GLYCOL (HEALTHYLAX) 3350 17 GM PACKET PO SCH (09:48)
[2022-06-09] MEDS: ATENOLOL 50 MG TABLET (FP) PO SCH (09:48)
[2022-06-09] MEDS ORDERED: LIDOCAINE PATCH REMOVAL MC SCH (11:29)
[2022-06-09] MEDS ORDERED: CHOLECALCIFEROL (VIT D3) 1,000 UNIT (25 MCG) TABLET PO SCH (11:30)
[2022-06-09] MEDS ORDERED: amLODIPine BESYLATE 2.5 MG TABLET (FP) PO ONE (11:45)
[2022-06-09 13:53] VITALS: BP 143/75; PULSE 79; RESP 17; TEMP 98.1
== END 2022-06-09 13:21 | disposition home or self-care (01) | DRG 948 ==
LOC: FER 04:27 → FM/S 09:12 → OBSVTOIN 10:18
PROVIDERS: ATTEND Nurse Practitioner Family
DX: R41.82 Altered mental status, unspecified (principal); N39.0 Urinary tract infection, site not specified; E87.3 Alkalosis; E87.29 Other acidosis; I48.91 Unspecified atrial fibrillation; T40.425A Adverse effect of tramadol, initial encounter; I10 Essential (primary) hypertension; E78.5 Hyperlipidemia, unspecified; K21.9 Gastro-esophageal reflux disease without esophagitis; H35.30 Unspecified macular degeneration; K57.90 Diverticulosis of intestine, part unspecified, without perforation or abscess without bleeding; R45.1 Restlessness and agitation; D64.9 Anemia, unspecified; K64.8 Other hemorrhoids; E86.0 Dehydration; Z96.643 Presence of artificial hip joint, bilateral; Z85.41 Personal history of malignant neoplasm of cervix uteri; Z85.51 Personal history of malignant neoplasm of bladder; Z86.73 Personal history of transient ischemic attack (TIA), and cerebral infarction without residual deficits
CPT/HCPCS: 36415; 70450-TC; 71045-TC-FY; 80053; 80307; 81003; 82306; 82550; 82607; 82803; 82962; 83605; 83735; 83880; 84100; 84439; 84443; 84484; 85025; 85027; 85610; 86850; 86900; 86901; 87086; 93005; 97116-GP; 97162-GP; 99285-25; C9803-CS; G0378; J3480; U0003; U0005